=== PATIENT | female | born 1950 | race Caucasian/White ===

== ENCOUNTER 2016-08-15 05:58 | Day surgery (SDC) | payer OTHER ==
[~2016-08-15] VITALS: Ht 163.8 cm; Wt 83.0 kg
[~2016-08-15 05:58] MED LIST: AMLO10TA2 PO; ASPI325T8 PO; LATA2.5D2 EACHEYE; LISI-334 PO; METF500T4 PO; METO100T2 PO; PRAV40TA2 PO; TRAM50TA PO; VALS160T3 PO
[2016-08-15] MEDS ORDERED: PROCHLORPERAZINE 10 MG/2 ML VIAL. IV PRN (07:00)
[2016-08-15] MEDS ORDERED: IV RINGERS,LACTATED 1000ML 1,000 ML IV SCH (07:00)
[2016-08-15] MEDS ORDERED: fentaNYL PF VIAL 100 MCG/2 ML VIAL IV PRN (07:00)
[2016-08-15] MEDS ORDERED: HYDROmorphone 2 MG/ML VIAL IV PRN (07:00)
[2016-08-15] MEDS ORDERED: LIDOCAINE 1% 1 ML SYRINGE. ID PRN (07:00)
[2016-08-15] MEDS ORDERED: ONDANSETRON PF 4 MG/2 ML VIAL. IV PRN (07:00)
[2016-08-15] MEDS ORDERED: LIDOCAINE 1% PF 30 ML VIAL. ONE (07:10)
[2016-08-15] MEDS ORDERED: BUPIVACAINE MPF 0.5% 30 ML VIAL. ONE (07:10)
[2016-08-15] MEDS ORDERED: FAMOTIDINE 20 MG/2 ML VIAL ONE (07:12)
[2016-08-15] MEDS ORDERED: LIDOCAINE 2% PF Vial for OR 5 ML VIAL. ONE (07:12)
[2016-08-15] MEDS ORDERED: PROPOFOL 20 ML IV ONE (07:12)
[2016-08-15] MEDS ORDERED: fentaNYL PF VIAL 100 MCG/2 ML VIAL ONE ×2 (07:13→07:53)
[2016-08-15] MEDS ORDERED: MIDAZOLAM HCL/PF 2 MG/2 ML VIAL. ONE (07:13)
[2016-08-15] MEDS ORDERED: ONDANSETRON PF 4 MG/2 ML VIAL. ONE (07:13)
[2016-08-15] MEDS ORDERED: ROCURONIUM 50 MG/5 ML VIAL. ONE (07:13)
--- NOTE | 2016-08-15 07:44 | DISCH ---
DISCHARGE INSTRUCTIONS Condition on Discharge Condition on Discharge: Stable Activity After Discharge Activity Instructions for Disc: Other, see below Other activity instructions: arm to remain in sling Bathing Instructions: Shower-keep dressing dry Weight Bearing Status after Di: Non weight bearing Diet after Discharge Diet after Discharge: Regular Wound Incision Care Wound/Incision Care: Ice to area for comfort, Keep wound/cast CDI, Change dressing Contacting the DR. after DC Call your doctor for: Concerns you may have Follow-Up Follow up with: Tushar in 2wks CELESTE KUMAR II, MD Aug 15, 2016 07:44
[2016-08-15] MEDS ORDERED: ePHEDrine PF IN SALINE 50 MG/5 ML DISP.SYRIN IV ONE (07:46)
[2016-08-15] MEDS ORDERED: NEOSTIGMINE METHYLSULFATE 5 MG/5 ML SYRINGE. ONE (08:37)
[2016-08-15] MEDS ORDERED: GLYCOPYRROLATE 1 MG/5 ML VIAL. ONE (08:37)
[2016-08-15] MEDS ORDERED: SEVOFLURANE 61 TO 120 MINUTES. IH ONE (08:38)
--- NOTE | 2016-08-15 08:57 | PDOC4 ---
Operative Note Operative Note Date of surgery: 08/15/2016 Surgeon: Grupo Kumar MD Supervisor Grove: Lauren Becerril Procedure: Mini open right rotator cuff repair Preoperative diagnosi partial-thickness rotator cuff tear Postoperative diagnosis: Same Anesthesia: Gen. plus local Blood loss 25 mL's Complications: None Reason for procedure: Kendra is a very pleasant 65-year-old female with persistent shoulder pain and dysfunction. Clinical and radiographic examination including MRI were consistent with the above preoperative diagnosis and because of failure of conservative therapies, her and I had a discussion the risks, benefits, and alternatives to the above surgery and she elected to proceed Description of procedure: Patient was greeted in the preoperative area by myself for the correct extremity was marked and verified. She was taken back to the operative suite and her antibiotics were started and row. Once in the operating room, she was transferred gently supine to the OR table and had successful induction with general anesthesia. We then placed a large pad under her legs and sat her up in a beachchair position. Her C-spine was maintained in a neutral position and she was secured to the bed with all pressure points padded. We then proceeded to prep and drape the right upper extremity in our usual sterile fashion and conducted our were standard preoperative timeout. After this I palpated and marked her surface anatomy and made approximately a 6 cm incision 1 cm off the lateral edge of her acromion. I incised skin with a scalpel and dissected subcutaneous tissue with electrocautery identified a deltoid raphae and used a scalpel to incise this proximally followed by a freer for blunt dissection through the fibers. I placed my Gelpi retractors and then bluntly dissected the bursa off of the undersurface of the deltoid and excised bursal tissue. This allowed me visualization of the rotator cuff. Her rotator cuff was frayed and I could palpate a defect. I used a scalpel to take down and around her to clean up the edge. I then used a Rongeur to create a bony trough. The anteroposterior dimensions of her tear were proximally 1-1/2 cm. I then passed #2 ultra braid in a simple fashion through the rotator cuff tendon, taking care not to incarcerate the biceps tendon. After this I shuttled one of my anterior most sutures through bone tunnel followed by sequentially passing the top one in the bottom of another through bone tunnels area and after this I tied the corresponding sutures over a bony bridge securely. I then inspected my repair and felt they had a comp she good repair and noticed no gapping at the bone tendon interface with gentle rotation. I then irrigated out the operative field and proceeded to close the deltoid with running 0 Vicryl. Inverted interrupted 2-0 Vicryl was used for subcutaneous tissue and running 4-0 Monocryl in a subcuticular fashion was used for skin. I injected approximately 20 mL of a local anesthetic mixture into the andrea-incisional area. The arm and shoulder were cleansed and dried and a sterile dressing was applied. Right upper extremity was then placed into a sling. Prior to comp shooting wound closure all counts report is correct 2. No complications. Patient tolerated surgery well. At the conclusion of the surgery she was laid gently supine and awakened from anesthesia. She was then transferred gently supine to the recovery room cart and taken to PACU stable and extubated condition. Postop plan is for her to be nonweightbearing and remain in the sling for 6 weeks. She' ll be discharged home today. We will see her back in 2 weeks, sooner should a problem arise GRUPO KUMAR II, MD Aug 15, 2016 08:57
[2016-08-15] MEDS: fentaNYL PF VIAL 100 MCG/2 ML VIAL IV PRN ×4 (09:13→10:02)
[2016-08-15] MEDS ORDERED: ONDA4TAB10 SL (09:17)
[2016-08-15] MEDS ORDERED: OXYC-323 PO (09:17)
[2016-08-15] MEDS ORDERED: DOCU-109 PO (09:18)
[2016-08-15] MEDS ORDERED: oxyCODONE/APAP 5/325 1 TAB TABLET PO PRN (09:30)
[2016-08-15] MEDS ORDERED: ALBUTEROL SULFATE 2.5 MG/3 ML NEBU. NEB ONE (10:00)
[2016-08-15 11:44] VITALS: BP 131/59
== END 2016-08-15 12:13 | disposition home or self-care (01) ==
LOC: SURG 05:58
PROVIDERS: ATTEND Orthopaedic Surgery Sports Medicine
DX: S46.011A Strain of muscle(s) and tendon(s) of the rotator cuff of right shoulder, initial encounter (principal); X58.XXXA Exposure to other specified factors, initial encounter; Y93.89 Activity, other specified; Y92.89 Other specified places as the place of occurrence of the external cause; Y99.9 Unspecified external cause status; E78.00 Pure hypercholesterolemia, unspecified; I10 Essential (primary) hypertension; E11.39 Type 2 diabetes mellitus with other diabetic ophthalmic complication; H40.9 Unspecified glaucoma; F17.200 Nicotine dependence, unspecified, uncomplicated; Z90.49 Acquired absence of other specified parts of digestive tract; Z90.710 Acquired absence of both cervix and uterus; Z87.442 Personal history of urinary calculi; Z72.89 Other problems related to lifestyle; Z87.440 Personal history of urinary (tract) infections; Z88.6 Allergy status to analgesic agent; Z88.8 Allergy status to other drugs, medicaments and biological substances
CPT/HCPCS: 23412; 82962; J0690; J2250; J2405; J2704; J2710; J3010; J3490; J7030; S0028; J1170

== ENCOUNTER → 2019-11-29 | Outpatient (CLI) | payer MEDICARE ==
[~2019-11-29] MED LIST changes: +AMLO-187 PO; -AMLO10TA2 PO; +DOCU-109 PO; +METF500T16 PO; -METF500T4 PO; -METO100T2 PO; +METO100T7 PO; +ONDA4TAB10 SL; +OXYC1TAB15 PO; +REGADENOSON 0.4 MG/5 ML DISP.SYRIN. IV ONE
--- NOTE | 2019-11-29 19:30 | RAD ---
MR#: [id number] Date of Study: 11/29/2019 Ordering Physician: JUDY BARDALES Referring Physician: HELADIO MALAGON Tech: RT Valerio (R) (N) APPROVED REPORT Test Type: Pharmacological Stress Nurse/Tech: Jocelyn Pablo R.N. Test Indications: chronic diastolic congestive heart failure Cardiac History: family hx, htn, DM, obese Medications: See Electronic Medical Record Medical History: See Electronic Medical Record Resting ECG: SR w/ slight ST elevation in lead V1 & V2, very slight ST depression in leads in V 4, V5 &V6 Resting Heart Rate: 73 bpm Resting Blood Pressure: 161/59mmHg Pretest Chest Pain: No chest pain Nurse/Tech Notes S1S2, murmur, lungs CTA Consent: The procedure was explained to the patient in lay terms. Informed consent was witnessed. Lj eout was entered into [employer]. History and Stress Test performed by RT Mary Valerio) (N) Pharm. Details Pharmacologic stress testing was performed using 0.4mg per 5ml of regadenoson given intravenously ove r 7-10 seconds. Stress Symptoms SOA POST EXERCISE Reason for Termination: Patient request Max HR: 100 bpm Max Blood Pressure: 186/60mmHg Blood Pressure response to exercise: Normal blood pressure response during stress. Heart Rate response to exercise: wnl Chest Pain: No. Arrhythmia: No. ST Change: No. no changes from abnormal baseline INTERPRETATION Stress EKG Conclusion: No evidence of stress induced EKG changes. Imaging Protocol IMAGE PROTOCOL: Rest Tc-99m/stress Tc-99m 1 day Rest: Stress: Viability: Radiopharm.Tc99m [id number] Sestamibi Dose10.7mCi 31mCi Duration 15min. 10min. Img Date 11/29/2019 11/29/2019 Inj-Img [id number]. 60min. Rest Admin Site:IV - Left AntecubitalAdministrator:RT Dayday ValerioR)(N) Stress Admin Site: IV - Left AntecubitalAdministrator: JESSIE Montero STRESS DATA End Diast. Vol.138.0mlAv. Heart Rate64.0bpm End Syst. Vol.47.0mlCO Index BSA0.0L/min Myocardial Talf321.0gEject. Dgcgekfe17.0% Stress Rates Pk. Fill Rate1.99EDV/secLVtime Pk. Fill 264.99msec Pk. Empty Rate2.54ESV/secLVtime Pk. Biola653.11msec 1/3 Pk. Fill1.55EDV/sec Stress Scores Regional WT1.00Summed WT8.00 Regional WM0.00Summed WM1.00 LV Perfusion Normal perfusion at stress. Wall Motion Normal wall motion with EF > 55% LV Perf. Quant 17 Seg. SSS4.00 17 Seg. SRS13.00 17 Seg. SDS0.00 Stress Defect Extent (% LAD)10.00Rest Defect Extent (% LAD)26.90Rev. Defect Extent (% LAD)0.00 Stress Defect Extent (% LCX) 27.50Rest Defect Extent (% LCX)36.30Rev. Defect Extent (% LCX)3.80 Stress Defect Extent (% RCA)0.00Rest Defect Extent (% RCA)3.30Rev. Defect Extent (% RCA)0.00 Stress Defect Extent (% YOLANDA)13.00Rest Defect Extent (% YOLANDA)27.40Rev. Defect Extent (% YOLANDA)0.70 Other Information Quality:Fair Risk Assessment: Low Risk Conclusion 1. No evidence of stress induced ischemic EKG changes. 2. Normal perfusion at stress. 3. Artifact noted on rest images, not able to be interpreted. 4. Normal EF at > 55% 5. Overall, low risk study Signed by : Hiram Scruggs, Electronically Approved : 11/29/2019 19:30:29
== END ==
LOC: NM 08:11
PROVIDERS: ATTEND Internal Medicine Cardiovascular Disease
DX: I50.32 Chronic diastolic (congestive) heart failure (principal)
CPT/HCPCS: 78452; 93017; A9500; J2785

== ENCOUNTER → 2019-12-13 | Outpatient (CLI) | payer MEDICARE ==
[~2019-12-13] MED LIST changes: +GADOTERATE 7.5 MMOL/15ML VIAL. IVP ONE; -REGADENOSON 0.4 MG/5 ML DISP.SYRIN. IV ONE
--- NOTE | 2019-12-13 13:06 | KCIC ---
EXAMINATION: Magnetic resonance imaging (MRI) of the brain and brainstem with and without contrast with dedicated views of the Temporal Bones and Internal Auditory Canals (IACs) DATE: 12/13/2019 11:00 AM INDICATION: ASYMMETRICAL SENSORINEURAL HEARING LOSS. Acute rt sided hearing loss after a recent ear infection. TECHNIQUE: Multiplanar, multisequence MR images were performed with and without contrast. Multiple T1 + T2 weighted images were obtained through temporal bone and IACs. 3D T2 weighted images were also obtained and reconstructed in coronal and sagittal planes. 15 cc of Clariscan contrast was given intravenously. COMPARISON: None. FINDINGS: Motion artifact degrades image quality. Both 7th and 8th nerve complexes are well visualized and normal. No mass within the internal auditory canal or cerebellopontine angle. The cochlear forms are normal with normal fluid signal within cochlea. The semicircular canals are normal. No abnormal enhancement. No acute infarction. No acute or chronic hemorrhage. The ventricles are normal in size and position without hydrocephalus. Mild scattered FLAIR hyperintensities in the subcortical and periventricular deep white matter, a nonspecific finding, most commonly seen with chronic small vessel ischemic disease. The scalp and calvarium are normal. The pituitary and sella are normal. No Chiari malformation. Mild incompletely characterized degenerative spondylosis of the visualized upper cervical spine. The visualized portions of the orbits, mastoids and paranasal sinuses are normal. Normal flow voids in the distal internal carotid and basilar arteries indicate patency. IMPRESSION: Normal MRI of the internal auditory canals. No mass or abnormal enhancement. Mild scattered FLAIR hyperintensities in the subcortical and periventricular deep white matter, a nonspecific finding, most commonly seen with chronic small vessel ischemic disease. Electronically signed by: Darius Kumar MD (12/13/2019 1:03 PM) [id number]
== END ==
LOC: KCIC MRI 10:17
PROVIDERS: ATTEND Otolaryngology
DX: I67.82 Cerebral ischemia (principal); H90.5 Unspecified sensorineural hearing loss
CPT/HCPCS: 70553; 82565; A9575

== ENCOUNTER → 2019-12-27 | Outpatient (CLI) | payer MEDICARE ==
[~2019-12-27] MED LIST changes: -GADOTERATE 7.5 MMOL/15ML VIAL. IVP ONE
[2019-12-27 10:27] LABS: BASO % 1 % (0-3); EOS # 0.2 x10^3/uL (0.0-0.7); EOS % 3 % (0-3); HEMATOCRIT 37.4 % (36.0-47.0); HEMOGLOBIN 12.5 g/dL (12.0-15.5); LYMPH # 1.1 x10^3/uL (1.0-4.8); LYMPH % 21 % (24-48); MEAN CORPUSCULAR HEMOGLOBIN 29 pg (25-35); MEAN CORPUSCULAR HGB CONC 34 g/dL (31-37); MEAN CORPUSCULAR VOLUME 86 fL (79-100); MONO # 0.5 x10^3/uL (0.0-1.1); MONO % 9 % (0-9); NEUT # 3.5 x10^3/uL (1.8-7.7); NEUT % 66 % (31-73); PLATELET COUNT 150 x10^3/uL (140-400); RED BLOOD COUNT 4.33 x10^6/uL (3.50-5.40); WHITE BLOOD COUNT 5.4 x10^3/uL (4.0-11.0)
== END ==
LOC: ONCLAB 10:08
PROVIDERS: ATTEND Internal Medicine Hematology & Oncology
DX: D50.9 Iron deficiency anemia, unspecified (principal)
CPT/HCPCS: 36415; 82607; 82728; 82746; 83540; 83550; 85025

== ENCOUNTER 2020-01-10 08:21 | Emergency (ER) | payer MEDICARE ==
[~2020-01-10] VITALS: Ht 162.6 cm; Wt 86.4 kg
--- NOTE | 2020-01-10 09:03 | PHYS DOC ---
Past Medical History Past Medical History: Arthritis, Diabetes-Type II, High Cholesterol, Hype rtension Past Surgical History: Other Additional Past Surgical Histo: HERNIA Smoking Status: Former Smoker Alcohol Use: None Drug Use: None General Adult EDM: Chief Complaint: FEVER HPI: HPI: Patient is a 69 year old female who presented to ER for evaluation of cough and trouble breathing for the last 4 days. Patient sister who she lives with was tested positive for COVID-19 yesterday. Patient denies any chest pain, no headache, no sore throat. Patient denies any history of diabetic or hypertension. Patient is not a smoker. Patient is not on oxygen at home. Patient denies any history of COPD or asthma. Review of Systems: Review of Systems: Constitutional: Denies fever or chills. [] Eyes: Denies change in visual acuity. [] HENT: Positive for nasal congestion , NO sore throat. [] Respiratory: Positive for cough or shortness of breath. [] Cardiovascular: Denies chest pain or edema. [] GI: Denies abdominal pain, nausea, vomiting, bloody stools or diarrhea. [] : Denies dysuria. [] Musculoskeletal: Denies back pain or joint pain. [] Integument: Denies rash. [] Neurologic: Denies headache, focal weakness or sensory changes. [] Endocrine: Denies polyuria or polydipsia. [] Lymphatic: Denies swollen glands. [] Psychiatric: Denies depression or anxiety. [] Heart Score: Risk Factors: Risk Factors: DM, Current or recent (<one month) smoker, HTN, HLP, family history of CAD, obesity. Risk Scores: Score 0 - 3: 2.5% MACE over next 6 weeks - Discharge Home Score 4 - 6: 20.3% MACE over next 6 weeks - Admit for Clinical Observation Score 7 - 10: 72.7% MACE over next 6 weeks - Early Invasive Strategies Allergies: Allergies: Allergies Coded Allergies Type Severity Reaction Last Updated Verified metformin Allergy Severe ANAPHYLAXIS 08/15/16 Yes morphine Allergy Intermediate 08/15/16 Yes I S O L A T I O N *CONTACT* Allergy Unknown 08/15/16 Yes Physical Exam: PE: Constitutional: Well developed, well nourished, no acute distress, non-toxic appearance. [] HENT: Normocephalic, atraumatic, bilateral external ears normal, oropharynx moist, no oral exudates, nose normal. [] Eyes: PERRLA, EOMI, conjunctiva normal, no discharge. [] Neck: Normal range of motion, no tenderness, supple, no stridor. [] Cardiovascular:Heart rate regular rhythm, LOUD SYSTOLIC murmur. Lungs & Thorax: Bilateral breath sounds clear to auscultation [] Abdomen: Bowel sounds normal, soft, no tenderness, no masses, no pulsatile masses. [] Skin: Warm, dry, no erythema, no rash. [] Back: No tenderness, no CVA tenderness. [] Extremities: No tenderness, no cyanosis, no clubbing, ROM intact, no edema. [] Neurologic: Alert and oriented X 3, normal motor function, normal sensory function, no focal deficits noted. [] Psychologic: Affect normal, judgement normal, mood normal. [] Current Patient Data: Labs: Laboratory Tests Test 01/10/20 09:00 01/10/20 09:11 Influenza Type A Antigen Negative Influenza Type B Antigen Negative White Blood Count 2.5 x10^3/uL Red Blood Count 3.90 x10^6/uL Hemoglobin 11.3 g/dL Hematocrit 33.9 % Mean Corpuscular Volume 87 fL Mean Corpuscular Hemoglobin 29 pg Mean Corpuscular Hemoglobin Concent 33 g/dL Red Cell Distribution Width 14.9 % Platelet Count 112 x10^3/uL Neutrophils (%) (Auto) 60 % Lymphocytes (%) (Auto) 18 % Monocytes (%) (Auto) 20 % Eosinophils (%) (Auto) 2 % Basophils (%) (Auto) 1 % Neutrophils # (Auto) 1.5 x10^3/uL Lymphocytes # (Auto) 0.4 x10^3/uL Monocytes # (Auto) 0.5 x10^3/uL Eosinophils # (Auto) 0.1 x10^3/uL Basophils # (Auto) 0.0 x10^3/uL Segmented Neutrophils % 50 % Band Neutrophils % 19 % Lymphocytes % 15 % Monocytes % 12 % Eosinophils % 3 % Metamyelocytes % 1 % Platelet Estimate Decreased Anisocytosis Slight Sodium Level 138 mmol/L Potassium Level 3.3 mmol/L Chloride Level 100 mmol/L Carbon Dioxide Level 29 mmol/L Anion Gap 9 Blood Urea Nitrogen 5 mg/dL Creatinine 0.5 mg/dL Estimated GFR (Cockcroft-Gault) 122.0 BUN/Creatinine Ratio 10 Glucose Level 165 mg/dL Calcium Level 8.4 mg/dL Magnesium Level 1.8 mg/dL Total Bilirubin 0.3 mg/dL Aspartate Amino Transf (AST/SGOT) 42 U/L Alanine Aminotransferase (ALT/SGPT) 40 U/L Alkaline Phosphatase 77 U/L Troponin I Quantitative 0.030 ng/mL QS-Zot-G-Type Natriuretic Peptide 543 pg/mL Total Protein 6.0 g/dL Albumin 3.5 g/dL Albumin/Globulin Ratio 1.4 Current Medications Medications (Trade) Dose Ordered Sig/Bharat Route PRN Reason Start Time Stop Time Status Last Admin Dose Admin Potassium Chloride (Klor-Con) 40 meq 1X ONCE PO 01/10/20 11:45 01/10/20 11:46 DC EKG: EKG: EKG was done at 942, heart rate of 59 bpm, sinus rhythm, no ST segment ovation. Radiology/Procedures: Radiology/Procedures: [][facility] [address] [place] [address] IMAGING REPORT Signed PATIENT: DANA BHAKTA ACCOUNT: [id number] : 1950 LOCATION: ER AGE: 69 SEX: F EXAM STATUS: PRE ER ORD. PHYSICIAN: KEISHA NEFF DO REASON: fever, cough, exposured to COVID-19 INFECTION PROCEDURE: CHEST AP ONLY EXAM: Chest, single view. HISTORY: Cough. Fever. Covid 19 exposure COMPARISON: None. FINDINGS: A frontal view of the chest is obtained. There is no infiltrate, pleural effusion or pneumothorax. There is a prominent cardiac silhouette, a component of which is accentuated due to portable technique. IMPRESSION: No acute pulmonary finding. Electronically signed by: Latia Al MD (01/10/2020 10:14 AM) [facility] DICTATED and SIGNED BY: LATIA AL MD DATE: 01/10/20 [id number] Course & Med Decision Making: Course & Med Decision Making Pertinent Labs and Imaging studies reviewed. (See chart for details) Patient is a 69-year-old female who was evaluated in ER due to cough and congestion. Patient sister whom she lives with with tested positive for COVID- 19 yesterday. Patient is most likely to have COVID-19. Test pending at this time. Vital sign is stable at this time. Her oxygen saturation is 98% on room air, her chest x-ray did not show any acute infiltration. Patient will be discharged home, she was given instruction about isolation at home. Patient is amenable to plan of care. Dragon Disclaimer: Dragon Disclaimer: This electronic medical record was generated, in whole or in part, using a voice recognition dictation system. Departure Departure Impression: Primary Impression: Person under investigation for COVID-19 Additional Impressions: Bronchitis Hypokalemia Disposition: 01 DC HOME SELF CARE/HOMELESS Condition: STABLE Referrals: TONY PITT MD (PCP) please follow up with your doctor as needed Patient Instructions: Acute Bronchitis Additional Instructions: You have been tested for or diagnosed with COVID-19. It is an infection caused by a new type of coronavirus. COVID-19 will cause cold-like or mild flu symptoms in most. It can cause more severe symptoms like problems breathing in some. There is no treatment for COVID-19. The body will clear the infection over time. Self-care will help to ease discomfort. Steps to Take: Self-Care Rest as needed. Healthy habits may help you feel better. Steps include: Choose healthy foods including fruits and vegetables. Drink water throughout the day. Get plenty of sleep each night. If you smoke, try to quit. It may ease breathing. Avoid alcohol. Keep Others Healthy The virus can spread to others. Droplets are released every time you sneeze or cough. The droplets can get into the mouth, nose, or eyes of people near you and lead to infection. To lower the chances of spreading COVID-19 to others: Stay at home until your doctor has said it is safe to leave. If you tested positive this will mean staying isolated until both of the following are true: At least 7 days have passed since the start of illness. You are free of fever for at least 72 hours without the use of medicine. During this time: - Avoid public areas, events, or transportation. Do not return to work or school until your doctor has said it is safe to do so. - Call ahead if you need to go to a medical center. Let them know you may have COVID-19. It will help them guide you where to go. They may also ask you to wear a facemask when you come to the office. - If you call for emergency medical services, let them know you may have COVID- 19. While at home: - Try to avoid close contact with others. Stay about 6 feet away. - If possible, spend most of your time in a separate room from others. - Use a face mask if you will be in close contact with others such as sharing a room or vehicle. - Have someone wipe down common surfaces in the home. Use household founder and chief technical officer every day on areas like doorknobs, counters, or sinks. - Cough or sneeze into a tissue. Throw the tissue away right after use. If a tissue is not available, cough or sneeze into your elbow. - Wash your hands often. Wash them after sneezing or coughing. Use soap and water and wash for at least 20 seconds. Alcohol based hand septic cleaner can be used if soap and water is not available. - Do not prepare food for others. Avoid sharing personal items like forks, spoons, or toothbrushes. - Avoid close contact with pets while you are sick. There is no evidence of the virus passing to pets. This is a safety step until more is known about this virus. Isolation can be frustrating. Social interaction can help. Keep in touch with friends and family through phone and tech options. You can still interact with others in your home, just keep a safe distance of about 6 feet. Follow-up: Your doctors office will check in with you to see if there are any changes in your health. You may be asked to keep track of symptoms to share with them. They will also let you know when you are clear to be in public again. Problems to Look Out For: Contact your doctor if your recovery is not going as you expect. Get emergency care if you have problems such as: - Trouble breathing - Nonstop chest pain or pressure - Changes in awareness, confusion, or problems waking - Lips or face have bluish color - Worsening of symptoms If you think you have an emergency, call for emergency medical services right away. As taken from [facility] KEISHA NEFF DO Jan 10, 2020 09:03
[2020-01-10 09:27] LABS: BASO % 1 % (0-3); EOS # 0.1 x10^3/uL (0.0-0.7); EOS % 2 % (0-3); HEMATOCRIT 33.9 % (36.0-47.0); HEMOGLOBIN 11.3 g/dL (12.0-15.5); LYMPH # 0.4 x10^3/uL (1.0-4.8); LYMPH % 18 % (24-48); MEAN CORPUSCULAR HEMOGLOBIN 29 pg (25-35); MEAN CORPUSCULAR HGB CONC 33 g/dL (31-37); MEAN CORPUSCULAR VOLUME 87 fL (79-100); MONO # 0.5 x10^3/uL (0.0-1.1); MONO % 20 % (0-9); NEUT # 1.5 x10^3/uL (1.8-7.7); NEUT % 60 % (31-73); PLATELET COUNT 112 x10^3/uL (140-400); RED CELL DISTRIBUTION WIDTH 14.9 % (11.5-14.5); WHITE BLOOD COUNT 2.5 x10^3/uL (4.0-11.0)
[2020-01-10 09:38] LABS: CALCIUM 8.4 mg/dL (8.5-10.1); CREATININE 0.5 mg/dL (0.6-1.0); POTASSIUM 3.3 mmol/L (3.5-5.1)
[2020-01-10 09:44] LABS: ALBUMIN 3.5 g/dL (3.4-5.0); ALBUMIN/GLOBULIN RATIO 1.4 (1.0-1.7); MAGNESIUM 1.8 mg/dL (1.8-2.4); TOTAL BILIRUBIN 0.3 mg/dL (0.2-1.0)
[2020-01-10 09:54] LABS: INFLUENZA A PATIENT NEGATIVE (NEGATIVE); INFLUENZA B PATIENT NEGATIVE (NEGATIVE)
[2020-01-10 10:08] LABS: % BANDS 19 % (0-9); % EOS 3 % (0-5); % LYMPHS 15 % (24-48); % METAS 1 % (0-0); % MONOS 12 % (0-10); % SEGS 50 % (35-66); ANISOCYTOSIS SLIGHT; PLT ESTIMATE DECREASED (ADEQUATE)
--- NOTE | 2020-01-10 10:18 | RAD ---
EXAM: Chest, single view. HISTORY: Cough. Fever. Covid 19 exposure COMPARISON: None. FINDINGS: A frontal view of the chest is obtained. There is no infiltrate, pleural effusion or pneumothorax. There is a prominent cardiac silhouette, a component of which is accentuated due to portable technique. IMPRESSION: No acute pulmonary finding. Electronically signed by: Latia Nieves MD (01/10/2020 10:14 AM) [facility]
[2020-01-10] MEDS ORDERED: POTASSIUM CHLORIDE 10 MEQ TABLET.ER. PO ONE (11:45)
[2020-01-10 12:30] VITALS: BP 171/74
--- NOTE | 2020-01-10 16:45 | EKG ---
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
--- NOTE | 2020-01-12 13:20 | NUR ---
IP: Informed pt of positive COVID test and the need to quarantine for 14 days. Pt verbalized understanding.
== END 2020-01-10 13:04 | disposition home or self-care (01) ==
LOC: ER 08:21
DX: U07.1 COVID-19 (principal); J40 Bronchitis, not specified as acute or chronic; E87.6 Hypokalemia; E11.9 Type 2 diabetes mellitus without complications; E78.00 Pure hypercholesterolemia, unspecified; I10 Essential (primary) hypertension; Z87.891 Personal history of nicotine dependence; Z88.1 Allergy status to other antibiotic agents; Z88.5 Allergy status to narcotic agent; Z91.041 Radiographic dye allergy status
CPT/HCPCS: 36415; 71045; 80053; 83735; 83880; 84484; 85007; 85025; 87040; 87804; 93005; 99285; C9803; U0003

== ENCOUNTER 2020-04-21 16:20 | Observation (INO) | payer MEDICARE ==
[~2020-04-21] VITALS: Ht 162.6 cm; Wt 90.3 kg
[~2020-04-21 16:20] MED LIST changes: -LISI-334 PO; +LISI20TA18 PO
[2020-04-21] MEDS ORDERED: fentaNYL PF VIAL 100 MCG/2 ML VIAL IVP ONE ×4 (19:00→22:30)
--- NOTE | 2020-04-21 20:12 | RAD ---
EXAM: CT HEAD WITHOUT IV CONTRAST CLINICAL HISTORY: Reason: fall, HIT HEAD / Spl. Instructions: PT DENIES HEAD OR NECK PAIN / History: COMPARISON: None. TECHNIQUE: Routine CT of the head without contrast. Soft tissues and bone windows were reviewed. PQRS compliance statement - One or more of the following individualized dose reduction techniques wer e utilized for this study: 1. Automated exposure control 2. Adjustment of the mA and/or kV according to patient size 3. Use of iterative reconstruction technique FINDINGS: There is no evidence of hemorrhage, mass or extra-axial fluid collection. Travis-white differentiation is maintained with no evidence of edema. Subcortical, periventricular as w ell as deep white matter hypoattenuation likely changes of chronic small vessel disease. There is no mass effect or shift of the intracranial structures. The ventricles, basilar cisterns and cortical sulci are normal in size and configuration for the lauren ents stated age. The cerebellum and brainstem are unremarkable. The calvarium demonstrates no evidence of fracture or focal lesion. There is normal aeration of the visualized paranasal sinuses and mastoid air cells. The visualized portions of the orbits are normal. Atherosclerotic calcifications of the intracranial internal carotid and vertebral arteries is seen. IMPRESSION: No evidence for acute intracranial process. White matter changes likely chronic small vessel disease. EXAM: CT CERVICAL SPINE WITHOUT IV CONTRAST CLINICAL HISTORY: Reason: fall, HIT HEAD / Spl. Instructions: PT DENIES HEAD OR NECK PAIN / History: COMPARISON: None available. TECHNIQUE: Helical CT of the cervical spine was performed. Axial, coronal and sagittal reformatted im ages were also performed. PQRS compliance statement - One or more of the following individualized dose reduction techniques wer e utilized for this study: 1. Automated exposure control 2. Adjustment of the mA and/or kV according to patient size 3. Use of iterative reconstruction technique FINDINGS: Vertebral body heights are preserved. Mild C5-6 and moderate C6-7 disc height loss. Endplate osteophy pat are seen. No spondylolisthesis. No acute fracture. Vascular calcifications are seen. IMPRESSION: Negative acute fracture or subluxation. Multilevel degenerative changes of the cervical spine as above. Electronically signed by: Kevin Bryant MD (04/21/2020 8:10 PM) [facility]
--- NOTE | 2020-04-21 20:48 | PHYS DOC ---
Past Medical History Past Medical History: Arthritis, Diabetes-Type II, High Cholesterol, Hype rtension, Other Additional Past Medical Histor: HEART MURMUR, BLOOD TRANS REACTION Past Surgical History: Cholecystectomy, Hip Replacement, Hysterectomy, Tonsillectomy, Other Additional Past Surgical Histo: HERNIA,SHOULDER Smoking Status: Former Smoker Alcohol Use: Rarely Drug Use: None General Adult EDM: Chief Complaint: MECHANICAL FALL HPI: HPI: Patient is a 69 year old female with history of anemia, diabetes, hypertension presents emergency department for a fall. Patient reports she tripped while walking and fell onto concrete. She did hit her face. No loss of consciousness. Patient is not on any anticoagulation. Patient is complaining of right arm pain and left elbow pain. Patient is accompanied by family member. Pain is located in the right elbow and forearm. She also has some pain in the left shoulder and left elbow. Patient denies chest pain abdominal pain back pain pain in the lower extremities. Patient was able to get up and walk into her home. She was then drove to the emergency department by family member. Review of Systems: Review of Systems: Review of Systems: Constitutional: Denies fever or chills Eyes: Denies redness or eye pain HENT: Denies nasal congestion or sore throat Respiratory: Denies cough or shortness of breath Cardiovascular: Denies chest pain or palpitations GI: denies abdominal pain and nausea, denies vomiting or diarrhea : Denies dysuria or hematuria Musculoskeletal: Denies back pain or joint pain Integument: Denies rash or skin lesions Neurologic: Denies headache, focal weakness or sensory changes Heart Score: C/O Chest Pain: No Current Medications: Current Medications Medications (Trade) Dose Ordered Sig/Bharat Start Time Stop Time Status Last Admin Dose Admin Fentanyl Citrate (Fentanyl 2ml Vial) 25 mcg 1X ONCE 04/21/20 19:00 04/21/20 19:01 DC 04/21/20 19:09 25 MCG Allergies: Allergies: Allergies Coded Allergies Type Severity Reaction Last Updated Verified metformin Allergy Severe ANAPHYLAXIS 08/15/16 Yes morphine Allergy Intermediate 08/15/16 Yes I S O L A T I O N *CONTACT* Allergy Unknown 08/15/16 Yes Physical Exam: PE: AIRWAY: Patient responds to verbal commands. Airway patent. BREATHING: spontaneously, equal and clear breath sounds bilaterally. No distress or stridor. CIRCULATION: Skin warm and dry. 2+ pulses bilaterally = DP, PTl. Capillary refill less than 2 sec. upper and lower extremities warm bilaterally. color television console monitor demonstrates sinus rhythm. GCS 15 HEENT: Normocephalic. No facial bone tenderness. Abrasion on the right lower mandible EYES: PERRL. No subconjuctiva hemorrhage, no periorbital ecchyomosis. EARS: No external trauma NARES: Patent bilaterally, no epistaxis MOUTH: clear of foreign bodies, lips and mucosa normal color without lesions. No signs of basal skull fracture. NEURO: Alert and oriented to person, place, and time. Moving all extremities. Follows commands. No gross deficits. Neurosensory intact in all extremities. NECK: cervical spine nontender, no stepoffs, crepitus or deformities to palpation. Trachea midline. CHEST: Symmetrical, no tracheal shift. No crepitus, flail chest, or deformities. No subcutaneous air palpated. No Crepitus. No ecchymosis, abrasions or lacerations. ABDOMEN: Soft, nontender, nondistended. No palpable organomegaly or masses. PELVIS: Nontender, Stable BACK: TLS Spine: No step-offs, deformities, abrasions/lacerations. No midline TTP. No ecchymosis. EXTREMITIES: Left upper extremity: Tenderness palpation of the left shoulder and left elbow. No tenderness palpation over the forearm wrist or hand on the left side. Range of motion of the elbow is limited secondary to pain. Patient's sensation and pulses are intact. Compartments are all soft. Right upper extremity: There is tenderness to palpation throughout the hand forearm elbow. Pulses and sensation are normal. Range of motion is limited secondary to pain. Compartments are all soft. bilateral lower extremities. No tenderness. Pulses sensation muscle strength range of motion normal. SKIN: Above Current Patient Data: Vital Signs: Vital Signs Date Time Temp Pulse Resp B/P (MAP) Pulse Ox O2 Delivery O2 Flow Rate FiO2 04/21/20 19:50 61 18 156/67 (96) 94 Room Air 04/21/20 17:50 98.1 98.1 EKG: EKG: [] Radiology/Procedures: Radiology/Procedures: []PROCEDURE: CT HEAD AND CERVICAL SPINE WO EXAM: CT HEAD WITHOUT IV CONTRAST CLINICAL HISTORY: Reason: fall, HIT HEAD / Spl. Instructions: PT DENIES HEAD OR NECK PAIN / History: COMPARISON: None. TECHNIQUE: Routine CT of the head without contrast. Soft tissues and bone windows were reviewed. PQRS compliance statement - One or more of the following individualized dose re duction techniques were utilized for this study: 1. Automated exposure control 2. Adjustment of the mA and/or kV according to patient size 3. Use of iterative reconstruction technique FINDINGS: There is no evidence of hemorrhage, mass or extra-axial fluid collection. Travis-white differentiation is maintained with no evidence of edema. Subcortical, periventricular as well as deep white matter hypoattenuation likely changes of chronic small vessel disease. There is no mass effect or shift of the intracranial structures. The ventricles, basilar cisterns and cortical sulci are normal in size and configuration for the patients stated age. The cerebellum and brainstem are unremarkable. The calvarium demonstrates no evidence of fracture or focal lesion. There is normal aeration of the visualized paranasal sinuses and mastoid air cells. The visualized portions of the orbits are normal. Atherosclerotic calcifications of the intracranial internal carotid and vertebral arteries is seen. IMPRESSION: No evidence for acute intracranial process. White matter changes likely chronic small vessel disease. EXAM: CT CERVICAL SPINE WITHOUT IV CONTRAST CLINICAL HISTORY: Reason: fall, HIT HEAD / Spl. Instructions: PT DENIES HEAD OR NECK PAIN / History: COMPARISON: None available. TECHNIQUE: Helical CT of the cervical spine was performed. Axial, coronal and sagittal reformatted images were also performed. PQRS compliance statement - One or more of the following individualized dose reduction techniques were utilized for this study: 1. Automated exposure control 2. Adjustment of the mA and/or kV according to patient size 3. Use of iterative reconstruction technique FINDINGS: Vertebral body heights are preserved. Mild C5-6 and moderate C6-7 disc height loss. Endplate osteophytes are seen. No spondylolisthesis. No acute fracture. Vascular calcifications are seen. IMPRESSION: Negative acute fracture or subluxation. Multilevel degenerative changes of the cervical spine as above. Electronically signed by: Kevin Zapata MD (04/21/2020 8:10 PM) [facility] DICTATED and SIGNED BY: KEVIN ZAPATA MD DATE: 04/21/20 [id number] PATIENT: DANA BHAKTA ACCOUNT: [id number] : 1950 LOCATION: ER AGE: 69 SEX: F EXAM STATUS: REG ER ORD. PHYSICIAN: EMILIA WEEKS DO REASON: fall PROCEDURE: SHOULDER 2+V LEFT Exam: Right hand 3 views. Right forearm 2 views. Bilateral elbows 3 views. Left shoulder 3 views INDICATION: Fall TECHNIQUE: Frontal, lateral and oblique views of the right hand, and bilateral elbows. Frontal and lateral views of the right forearm. Frontal view of the left shoulder with internal and external rotation and transscapular Y views. Comparisons: None FINDINGS: Hand: There is a mildly impacted intra-articular fracture of the distal radius. Additionally there is a mild chip fracture at the ulnar styloid. There is mild surrounding soft tissue swelling. There is minimal step-off at the articular surface seen best on lateral view of the hand. Other fractures are identified. Bone mineralization is normal. Forearm: Redemonstration of distal radial fracture and ulnar styloid fracture. Other fractures seen. Bone mineralization is normal. Joint spaces are otherwise well- maintained. Right elbow: Bone mineralization is normal. No acute or healed fractures. Soft tissues are unremarkable. Joint spaces are well-maintained. Left elbow: Bone mineralization is normal. No acute or healed fractures. Soft tissues are unremarkable. Joint spaces are well-maintained. Left shoulder: Mild osteopenia. Joint spaces are well-maintained. No acute or healed fractures. Soft tissues are unremarkable. IMPRESSION: 1. Mildly impacted intra-articular fracture of the distal right radius with minimal cortical step-off at the articular surface. 2. Minimally displaced ulnar styloid chip fracture. 3. No acute osseous abnormality of the right elbow. 4. No acute osseous abnormality of the left elbow 5. No acute osseous abnormality of the left shoulder Electronically signed by: Guilherme Velez MD (04/21/2020 9:30 PM) [facility] DICTATED and SIGNED BY: GUILHERME VELEZ MD DATE: 04/21/[id number] 0 PATIENT: DANA BHAKTA ACCOUNT: [id number] : 1950 LOCATION: ER AGE: 69 SEX: F EXAM STATUS: REG ER ORD. PHYSICIAN: EMILIA WEEKS DO REASON: elbow pain PROCEDURE: CT UPPR EXTREMTY WO CONTRST LT EXAM: CT left elbow without contrast DATE: 04/21/2020 10:34 PM COMPARISON: Radiographs pars fracture INDICATION: Reason: elbow pain / Spl. Instructions: / History: TECHNIQUE: CT of the left elbow was performed without IV contrast. Axial, coronal and sagittal reformatted images were generated. PQRS compliance statement - One or more of the following individualized dose re duction techniques were utilized for this study: 1. Automated exposure control 2. Adjustment of the mA and/or kV according to patient size 3. Use of iterative reconstruction technique FINDINGS: Mild articular surface depression of the radial head suspicious for nondisplaced radial head fracture. Moderate left elbow joint effusion. Mild dorsal soft tissue swelling. IMPRESSION: Suspected slightly depressed left radial head fracture with moderate left elbow joint effusion. Electronically signed by: Kevin Zapata MD (04/21/2020 11:02 PM) [facility] DICTATED and SIGNED BY: KEVIN ZAPATA MD DATE: 04/21/20 [id number] 0 Course & Med Decision Making: Course & Med Decision Making Medical decision making: This is a 69-year-old female presents after mechanical fall. Patient is mostly complaining of right arm pain as well as left elbow pain. Patient is neurovascular intact in the bilateral upper and lower extremities. She did hit her face. She reports no syncope. Patient is not on anticoagulants. Here in the emergency department patient's vital signs are stable. She is given dose of pain medication. CT of the head and cervical spine were negative for any acute findings. X-ray of the right radius arm shows mildly impacted intra-articular fracture of the distal radius minimal cortical step-off at articular surface. Minimally displaced ulnar styloid chip fracture. No acute osseous normality of the right elbow left elbow or left shoulder. I did speak with the on-call orthopedic physician Dr. Ta. Patient symptoms mechanism of injury and x-ray findings. Will place patient in sugar tong splint. Okay to follow-up in the office on April 23. Sugar tong splint was placed. Patient is neurovascularly intact post splint application. On reevaluation patient reports she still having a lot of pain in her left el bow. Is having difficulty with full flexion and extension. Will obtain CT to rule out fracture. CT showed possible radial head fracture on the left. Patient placed in posterior long-arm splint. Patient neurovascularly intact post splinting. I did speak with the on-call orthopedic physician again. He is aware of the new finding and that the patient will be admitted to the hospital. At this time based on patient's symptoms and findings will admit to the hospital for further observation and evaluation. Spoke with patient. Agreeable to admission. They are aware of all labs and imaging. All questions answered and patient stable at time of admission. Dragon Disclaimer: Dragon Disclaimer: This electronic medical record was generated, in whole or in part, using a voice recognition dictation system. Departure Departure Impression: Primary Impression: Fall Additional Impressions: Fracture of right distal radius Fracture of right ulnar styloid Left radial head fracture Disposition: 09 ADMITTED INPT THIS HOSP (Admitted to Dr. Roman at 2330 on 04/21/20. Patient stable at the time of admission. Spoke with Dr. Roman at 0530 on 04/22/2020. Agrees to plan. We will see the patient.) Condition: STABLE Referrals: [facility]PER[facility] (PCP) Splinting Patient informed of findings. Right sugar tong splint and left posterior long- arm applied by myself and client technologies specialist. The splint is checked by myself, with adequate positioning for stabilization of the injury. Distal capillary refill normal and distal neurologic function neurologically intact. No signs of compartment syndrome. EMILIA WEEKS DO Apr 21, 2020 20:48
--- NOTE | 2020-04-21 21:32 | RAD ---
Exam: Right hand 3 views. Right forearm 2 views. Bilateral elbows 3 views. Left shoulder 3 views INDICATION: Fall TECHNIQUE: Frontal, lateral and oblique views of the right hand, and bilateral elbows. Frontal and la teral views of the right forearm. Frontal view of the left shoulder with internal and external rotati on and transscapular Y views. Comparisons: None FINDINGS: Hand: There is a mildly impacted intra-articular fracture of the distal radius. Additionally there is a mil d chip fracture at the ulnar styloid. There is mild surrounding soft tissue swelling. There is minima l step-off at the articular surface seen best on lateral view of the hand. Other fractures are identi fied. Bone mineralization is normal. Forearm: Redemonstration of distal radial fracture and ulnar styloid fracture. Other fractures seen. Bone mine ralization is normal. Joint spaces are otherwise well-maintained. Right elbow: Bone mineralization is normal. No acute or healed fractures. Soft tissues are unremarkable. Joint spa dax are well-maintained. Left elbow: Bone mineralization is normal. No acute or healed fractures. Soft tissues are unremarkable. Joint spa dax are well-maintained. Left shoulder: Mild osteopenia. Joint spaces are well-maintained. No acute or healed fractures. Soft tissues are unr emarkable. IMPRESSION: 1. Mildly impacted intra-articular fracture of the distal right radius with minimal cortical step-of f at the articular surface. 2. Minimally displaced ulnar styloid chip fracture. 3. No acute osseous abnormality of the right elbow. 4. No acute osseous abnormality of the left elbow 5. No acute osseous abnormality of the left shoulder Electronically signed by: Guilherme Gardner MD (04/21/2020 9:30 PM) [facility]
--- NOTE | 2020-04-21 23:04 | RAD ---
EXAM: CT left elbow without contrast DATE: 04/21/2020 10:34 PM COMPARISON: Radiographs pars fracture INDICATION: Reason: elbow pain / Spl. Instructions: / History: TECHNIQUE: CT of the left elbow was performed without IV contrast. Axial, coronal and sagittal reform atted images were generated. PQRS compliance statement - One or more of the following individualized dose reduction techniques wer e utilized for this study: 1. Automated exposure control 2. Adjustment of the mA and/or kV according to patient size 3. Use of iterative reconstruction technique FINDINGS: Mild articular surface depression of the radial head suspicious for nondisplaced radial head fracture . Moderate left elbow joint effusion. Mild dorsal soft tissue swelling. IMPRESSION: Suspected slightly depressed left radial head fracture with moderate left elbow joint effusion. Electronically signed by: Kevin Bryant MD (04/21/2020 11:02 PM) [facility]
[2020-04-21] MEDS ORDERED: ONDANSETRON PF 4 MG/2 ML VIAL. IV PRN (23:30)
[2020-04-21] MEDS ORDERED: fentaNYL PF VIAL 100 MCG/2 ML VIAL IV PRN (23:30)
[2020-04-22] VITALS (7 sets, daily range): BP systolic 152–188; BP diastolic 61–81
[2020-04-22] MEDS: fentaNYL PF VIAL 100 MCG/2 ML VIAL IV PRN ×5 (01:19→09:42)
--- NOTE | 2020-04-22 06:55 | PDOC1 ---
History and Physical Date of Admission Date of Admission DATE: 04/22/20 TIME: 06:43 Identification/Chief Complaint Chief Complaint Mechanical fall Source Source: Chart review, Patient History of Present Illness History of Present Illness Patient is 69-year-old female with past medical history hypertension, DM2, who presents to the ED for evaluation after mechanical fall. She reports falling forward after stumbling over a curve yesterday afternoon. She denies head injury or loss of consciousness. Since that time she complains of right forearm and wrist pain, and left elbow pain, 10/10. Pain aggravated by movement. She is not on any blood thinners. Upon evaluation in ED she was noted to have right radius, right ulna, and suspected left radial head fracture. Orthopedic surgery was consulted in the ED. Will admit patient for further medical management. Past Medical History Cardiovascular: HTN, Hyperlipidemia Heme/Onc: Anemia NOS Endocrine: Diabetes Past Surgical History Past Surgical History Cholecystectomy, right hip replacement, hernia repair, hysterectomy, tonsillectomy, shoulder surgery Family History Family History: Heart Disease Social History Smoke: Quit ALCOHOL: rare Drugs: None Current Problem List Problem List Problems Medical Problems: (1) Fall Status: Acute (2) Fracture of right distal radius Status: Acute (3) Fracture of right ulnar styloid Status: Acute (4) Left radial head fracture Status: Acute Current Medications Current Medications Current Medications Fentanyl Citrate (Fentanyl 2ml Vial) 25 mcg 1X ONCE IVP Last administered on 04/21/20at 19:09; Start 04/21/20 at 19:00; Stop 04/21/20 at 19:01; Status DC Fentanyl Citrate (Fentanyl 2ml Vial) 25 mcg 1X ONCE IVP Last administered on 04/21/20at 20:50; Start 04/21/20 at 20:45; Stop 04/21/20 at 20:49; Status DC Fentanyl Citrate (Fentanyl 2ml Vial) 25 mcg 1X ONCE IVP Last administered on 04/21/20at 22:17; Start 04/21/20 at 22:00; Stop 04/21/20 at 22:01; Status DC Fentanyl Citrate (Fentanyl 2ml Vial) 25 mcg 1X ONCE IVP Last administered on 04/22/20at 00:14; Start 04/21/20 at 22:30; Stop 04/21/20 at 22:31; Status DC Ondansetron HCl (Zofran) 4 mg PRN Q8HRS PRN IV NAUSEA/VOMITING 1ST CHOICE; Start 04/21/20 at 23:30; Stop 04/22/20 at 23:29 Fentanyl Citrate (Fentanyl 2ml Vial) 25 mcg PRN Q4HRS PRN IV SEVERE PAIN 7-10; Start 04/21/20 at 23:30; Stop 04/22/20 at 01:10; Status DC Fentanyl Citrate (Fentanyl 2ml Vial) 75 mcg PRN Q2HR PRN IV SEVERE PAIN 7-10 Last administered on 04/22/20at 06:39; Start 04/22/20 at 01:15 Active Scripts Active Reported Colace (Docusate Sodium) 100 Mg Capsule 1 Cap PO BID Zofran Odt (Ondansetron) 4 Mg Tab.rapdis 1 Tab SL Q8HRS Percocet 5-325 Mg Tablet (Oxycodone/Acetaminophen) 1 Each Tablet 1 Tab PO Q3HRS Lisinopril 20 Mg Tablet 1 Tab PO QHS Xalatan (Latanoprost) 2.5 Ml Drops 1 Drop EACHEYE QHS Tramadol Hcl 50 Mg Tablet 50 Mg PO DAILY PRN Metoprolol Tartrate 100 Mg Tablet 100 Mg PO BID Amlodipine Besylate 10 Mg Tablet 10 Mg PO DAILY Pravastatin Sodium 40 Mg Tablet 1 Tab PO QHS Allergies Allergies: Coded Allergies: metformin (Verified Allergy, Severe, ANAPHYLAXIS, 08/15/16) morphine (Verified Allergy, Intermediate, 08/15/16) I S O L A T I O N *CONTACT* (Verified Allergy, Unknown, 08/15/16) ESBL + ROS Review of System GENERAL: No history of weight change, weakness or fevers. SKIN: No bruising, hair changes or rashes. EYES: No blurred, double or loss of vision. NOSE AND THROAT: No history of nosebleeds, hoarseness or sore throat. HEART: Denies chest pain, denies palpitations. LUNGS: Denies cough, hemoptysis, wheezing or shortness of breath. GASTROINTESTINAL: Denies nausea, vomiting, abdominal pain. GENITOURINARY: Denies dysuria, frequency, urgency, hematuria. NEUROLOGIC: Denies history of numbness, tingling, tremor or weakness. PSYCHIATRIC: Denies anxiety, denies depression. ENDOCRINE: No history of heat or cold intolerance, polyuria or polydipsia. EXTREMITIES: Right upper extremity and left elbow pain. Physical Exam Physical Exam General: Alert, Oriented X3, Cooperative, Mild distress. HEENT: PERRLA, EOMI Lungs: Clear to auscultation, Normal air movement Heart: RRR, no murmurs Cardiovascular: S1, S2 Abdomen: Normal bowel sounds, Soft, No tenderness Extremities: Tenderness to palpation of the left shoulder and left elbow. T enderness to palpation throughout the right hand forearm elbow. Neurovascularly intact. No clubbing, No cyanosis Skin: No rashes, No significant lesion Neuro: Normal speech, Normal tone, Sensation intact Psych/Mental Status: Mental status NL, Mood NL Vitals Vitals Vital Signs Date Time Temp Pulse Resp B/P (MAP) Pulse Ox O2 Delivery O2 Flow Rate FiO2 04/22/20 06:39 28 Room Air 04/22/20 03:24 98.2 65 159/61 (93) 90 98.2 Labs Labs Laboratory Tests Test 04/22/20 00:54 Glucose (Fingerstick) 151 mg/dL (70-99) Laboratory Tests Test 04/22/20 00:54 Glucose (Fingerstick) 151 mg/dL (70-99) Images Images CT HEAD AND CERVICAL SPINE WO EXAM: CT HEAD WITHOUT IV CONTRAST CLINICAL HISTORY: Reason: fall, HIT HEAD / Spl. Instructions: PT DENIES HEAD OR NECK PAIN / History: COMPARISON: None. TECHNIQUE: Routine CT of the head without contrast. Soft tissues and bone windows were reviewed. PQRS compliance statement - One or more of the following individualized dose reduction techniques were utilized for this study: 1. Automated exposure control 2. Adjustment of the mA and/or kV according to patient size 3. Use of iterative reconstruction technique FINDINGS: There is no evidence of hemorrhage, mass or extra-axial fluid collection. Travis-white differentiation is maintained with no evidence of edema. Subcortical, periventricular as well as deep white matter hypoattenuation likely changes of chronic small vessel disease. There is no mass effect or shift of the intracranial structures. The ventricles, basilar cisterns and cortical sulci are normal in size and configuration for the patients stated age. The cerebellum and brainstem are unremarkable. The calvarium demonstrates no evidence of fracture or focal lesion. There is normal aeration of the visualized paranasal sinuses and mastoid air cells. The visualized portions of the orbits are normal. Atherosclerotic calcifications of the intracranial internal carotid and vertebral arteries is seen. IMPRESSION: No evidence for acute intracranial process. White matter changes likely chronic small vessel disease. EXAM: CT CERVICAL SPINE WITHOUT IV CONTRAST CLINICAL HISTORY: Reason: fall, HIT HEAD / Spl. Instructions: PT DENIES HEAD OR NECK PAIN / History: COMPARISON: None available. TECHNIQUE: Helical CT of the cervical spine was performed. Axial, coronal and sagittal reformatted images were also performed. PQRS compliance statement - One or more of the following individualized dose reduction techniques were utilized for this study: 1. Automated exposure control 2. Adjustment of the mA and/or kV according to patient size 3. Use of iterative reconstruction technique FINDINGS: Vertebral body heights are preserved. Mild C5-6 and moderate C6-7 disc height loss. Endplate osteophytes are seen. No spondylolisthesis. No acute fracture. Vascular calcifications are seen. IMPRESSION: Negative acute fracture or subluxation. Multilevel degenerative changes of the cervical spine as above. Electronically signed by: Kevin Zapata MD (04/21/2020 8:10 PM) [facility] [place] DICTATED and SIGNED BY: KEVIN ZAPATA MD DATE: 04/21/[id number] 0 PATIENT: DANA BHAKTA ACCOUNT: [id number] : 1950 LOCATION: ER AGE: 69 SEX: F EXAM STATUS: REG ER ORD. PHYSICIAN: EMILIA WEEKS DO REASON: fall PROCEDURE: SHOULDER 2+V LEFT Exam: Right hand 3 views. Right forearm 2 views. Bilateral elbows 3 views. Left shoulder 3 views INDICATION: Fall TECHNIQUE: Frontal, lateral and oblique views of the right hand, and bilateral elbows. Frontal and lateral views of the right forearm. Frontal view of the left shoulder with internal and external rotation and transscapular Y views. Comparisons: None FINDINGS: Hand: There is a mildly impacted intra-articular fracture of the distal radius. Additionally there is a mild chip fracture at the ulnar styloid. There is mild surrounding soft tissue swelling. There is minimal step-off at the articular surface seen best on lateral view of the hand. Other fractures are identified. Bone mineralization is normal. Forearm: Redemonstration of distal radial fracture and ulnar styloid fracture. Other fractures seen. Bone mineralization is normal. Joint spaces are otherwise well- maintained. Right elbow: Bone mineralization is normal. No acute or healed fractures. Soft tissues are unremarkable. Joint spaces are well-maintained. Left elbow: Bone mineralization is normal. No acute or healed fractures. Soft tissues are unremarkable. Joint spaces are well-maintained. Left shoulder: Mild osteopenia. Joint spaces are well-maintained. No acute or healed fractures. Soft tissues are unremarkable. IMPRESSION: 1. Mildly impacted intra-articular fracture of the distal right radius with minimal cortical step-off at the articular surface. 2. Minimally displaced ulnar styloid chip fracture. 3. No acute osseous abnormality of the right elbow. 4. No acute osseous abnormality of the left elbow 5. No acute osseous abnormality of the left shoulder Electronically signed by: Guilherme Velez MD (04/21/2020 9:30 PM) [facility] DICTATED and SIGNED BY: GUILHERME VELEZ MD DATE: 04/21/20 [id number] PATIENT: DANA BHAKTA ACCOUNT: [id number] : 1950 LOCATION: ER AGE: 69 SEX: F EXAM STATUS: REG ER ORD. PHYSICIAN: EMILIA WEEKS DO REASON: elbow pain PROCEDURE: CT UPPR EXTREMTY WO CONTRST LT EXAM: CT left elbow without contrast DATE: 04/21/2020 10:34 PM COMPARISON: Radiographs pars fracture INDICATION: Reason: elbow pain / Spl. Instructions: / History: TECHNIQUE: CT of the left elbow was performed without IV contrast. Axial, coronal and sagittal reformatted images were generated. PQRS compliance statement - One or more of the following individualized dose reduction techniques were utilized for this study: 1. Automated exposure control 2. Adjustment of the mA and/or kV according to patient size 3. Use of iterative reconstruction technique FINDINGS: Mild articular surface depression of the radial head suspicious for nondisplaced radial head fracture. Moderate left elbow joint effusion. Mild dorsal soft tissue swelling. IMPRESSION: Suspected slightly depressed left radial head fracture with moderate left elbow joint effusion. VTE Prophylaxis Ordered VTE Prophylaxis Devices: No VTE Pharmacological Prophylaxi: Yes Assessment/Plan Assessment/Plan Intra-articular fracture distal right radius Minimally displaced right ulnar styloid chip fracture Suspected left radial head fracture with joint effusion DM2 Plan: Consultation placed to orthopedic surgery Sugar tong splint and posterior long-arm splint was placed in the ED Pain management PT/OT Resume home medications FEN - ADA diet PPX - Heparin FULL CODE Dispo - observation for above Justifications for Admission Other Justification ELLEN HARO MD Apr 22, 2020 06:55
[2020-04-22] MEDS ORDERED: IBUPROFEN 400 MG TABLET. PO PRN (07:00)
[2020-04-22] MEDS ORDERED: CALCIUM CARBONATE 500 MG TAB.CHEW PO PRN (07:00)
[2020-04-22] MEDS ORDERED: ACETAMINOPHEN 325 MG TABLET. PO PRN (07:00)
[2020-04-22] MEDS ORDERED: BISACODYL 10 MG SUPP.RECT. PR PRN (07:00)
[2020-04-22] MEDS ORDERED: HYDROcodone/APAP 5/325MG 1 TAB TABLET PO PRN ×2 (07:00)
[2020-04-22] MEDS ORDERED: MAG HYDROX/ALUMINUM HYD/SIMETH 30 ML ORAL.SUSP PO PRN (07:00)
[2020-04-22] MEDS ORDERED: oxyCODONE/APAP 5/325 1 TAB TABLET PO PRN (07:00)
[2020-04-22] MEDS ORDERED: ZOLPIDEM 5 MG TABLET. PO PRN (07:00)
[2020-04-22] MEDS ORDERED: ONDANSETRON PF 4 MG/2 ML VIAL. IVP PRN (07:00)
[2020-04-22] MEDS ORDERED: DEXTROSE 50% 25 GM / 50ML DISP.SYRIN. IV PRN (07:00)
[2020-04-22] MEDS ORDERED: MAGNESIUM HYDROXIDE 2,400 MG/30 ML ORAL.SUSP. PO PRN (07:00)
[2020-04-22] MEDS ORDERED: IV DEXTROSE 5% 250 ML BAG. IV PRN (07:00)
--- NOTE | 2020-04-22 07:13 | NUR ---
called consult to dr machado at this time
[2020-04-22] MEDS: HEPARIN for SUB-Q USE 5,000 UNIT/ML VIAL. SQ SCH ×3 (07:15→21:31)
[2020-04-22] MEDS: METOPROLOL TART IMMED RELEASE 50 MG TABLET. PO SCH ×2 (08:25→21:28)
[2020-04-22] MEDS: amLODIPine BESYLATE 10 MG TABLET PO SCH (08:28)
[2020-04-22] MEDS: DOCUSATE SODIUM 100 MG CAPSULE. PO SCH ×2 (08:28→21:28)
[2020-04-22] MEDS: INSULIN LISPRO 300 UNITS/3 ML VIAL. SQ SCH ×3 (09:28→17:16)
--- NOTE | 2020-04-22 09:55 | NUR ---
Dr. Richard notified of pt not having access to draw labs due to casts for injuries to bilat. UE. Dr. Richard said to hold lab work until Ortho see's patient today with POC.
--- NOTE | 2020-04-22 10:07 | NUR ---
SW following. Discussed with RN, pt from home with sister, room air, ada diet. Ortho consulted. PT/OT to work with pt. Pt likely will need SNF upon discharge. SW will continue to follow.
--- NOTE | 2020-04-22 11:38 | PDOC2 ---
CONSULT Date of Consult Date of Consult DATE: 04/22/20 TIME: 11:33 Reason for Consult Reason for Consult: Left proximal radius fracture, right distal radius fracture Identification/Chief Complaint Chief Complaint Left elbow pain, right wrist pain History of Present Illness Reason for Visit: This is a 69-year-old female who sustained a fall from standing. She reports immediate pain in her bilateral arms. Her right wrist is more severe than her left elbow. She denies any history of previous trauma or injury to the bilateral upper extremities. She reports pain with range of motion in her right digits. She denies any numbness or tingling distally in the bilateral upper extremities. She denies any history of previous surgery. Past Medical History Cardiovascular: HTN, Hyperlipidemia Heme/Onc: Anemia NOS Endocrine: Diabetes Family History Family History: Heart Disease Social History Quit ALCOHOL: rare Drugs: None Current Problem List Problem List Problems Medical Problems: (1) Fall Status: Acute (2) Fracture of right distal radius Status: Acute (3) Fracture of right ulnar styloid Status: Acute (4) Left radial head fracture Status: Acute Current Medications Current Medications Current Medications Fentanyl Citrate (Fentanyl 2ml Vial) 25 mcg 1X ONCE IVP Last administered on 04/21/20at 19:09; Start 04/21/20 at 19:00; Stop 04/21/20 at 19:01; Status DC Fentanyl Citrate (Fentanyl 2ml Vial) 25 mcg 1X ONCE IVP Last administered on 04/21/20at 20:50; Start 04/21/20 at 20:45; Stop 04/21/20 at 20:49; Status DC Fentanyl Citrate (Fentanyl 2ml Vial) 25 mcg 1X ONCE IVP Last administered on 04/21/20at 22:17; Start 04/21/20 at 22:00; Stop 04/21/20 at 22:01; Status DC Fentanyl Citrate (Fentanyl 2ml Vial) 25 mcg 1X ONCE IVP Last administered on 04/22/20at 00:14; Start 04/21/20 at 22:30; Stop 04/21/20 at 22:31; Status DC Ondansetron HCl (Zofran) 4 mg PRN Q8HRS PRN IV NAUSEA/VOMITING 1ST CHOICE; Start 04/21/20 at 23:30; Stop 04/22/20 at 23:29 Fentanyl Citrate (Fentanyl 2ml Vial) 25 mcg PRN Q4HRS PRN IV SEVERE PAIN 7-10; Start 04/21/20 at 23:30; Stop 04/22/20 at 01:10; Status DC Fentanyl Citrate (Fentanyl 2ml Vial) 75 mcg PRN Q2HR PRN IV SEVERE PAIN 7-10 Last administered on 04/22/20at 09:42; Start 04/22/20 at 01:15 Ondansetron HCl (Zofran) 4 mg PRN Q6HRS PRN IVP NAUSEA/VOMITING; Start 04/22/20 at 07:00 Al Hydroxide/Mg Hydroxide (Mylanta Plus Xs) 30 ml PRN Q3HRS PRN PO HEARTBURN / GAS; Start 04/22/20 at 07:00 Calcium Carbonate/ Glycine (Tums) 500 mg PRN Q3HRS PRN PO UPSET STOMACH; Start 04/22/20 at 07:00 Zolpidem Tartrate (Ambien) 5 mg PRN QHS PRN PO INSOMNIA, MAY REPEAT IN 1HR; Start 04/22/20 at 07:00 Acetaminophen/ Hydrocodone Bitart (Lortab 5/325) 1 tab PRN Q4HRS PRN PO MILD PAIN 1-3; Start 04/22/20 at 07:00 Acetaminophen/ Hydrocodone Bitart (Lortab 5/325) 2 tab PRN Q4HRS PRN PO MODERATE PAIN, SEVERE PAIN; Start 04/22/20 at 07:00 Oxycodone/ Acetaminophen (Percocet 5/325) 1 tab PRN Q4HRS PRN PO MILD PAIN, 2ND CHOICE; Start 04/22/20 at 07:00 Oxycodone/ Acetaminophen (Percocet 5/325) 2 tab PRN Q4HRS PRN PO MODERATE PAIN, SEVERE PAIN; Start 04/22/20 at 07:00 Acetaminophen (Tylenol) 650 mg PRN Q6HRS PRN PO Headaches, Temp > 101.5F; Start 04/22/20 at 07:00 Ibuprofen (Motrin) 400 mg PRN Q6HRS PRN PO MILD PAIN 1-3; Start 04/22/20 at 07:00 Magnesium Hydroxide (Milk Of Magnesia) 2,400 mg PRN Q12HR PRN PO CONSTIPATION; Start 04/22/20 at 07:00 Bisacodyl (Dulcolax Supp) 10 mg PRN DAILY PRN ME CONSTIPATION; Start 04/22/20 at 07:00 Heparin Sodium (Porcine) (Heparin Sodium) 5,000 unit Q8HRS SQ ; Start 04/22/20 at 07:15 Amlodipine Besylate (Norvasc) 10 mg DAILY PO ; Start 04/22/20 at 09:00 Docusate Sodium (Colace) 100 mg BID PO ; Start 04/22/20 at 09:00 Lisinopril (Prinivil) 20 mg QHS PO ; Start 04/22/20 at 21:00 Metoprolol Tartrate (Lopressor) 100 mg BID PO Last administered on 04/22/20at 08:25; Start 04/22/20 at 09:00 Atorvastatin Calcium (Lipitor) 10 mg QHS PO ; Start 04/22/20 at 21:00 Insulin Human Lispro (HumaLOG) 0-7 UNITS TIDWMEALS SQ Last administered on 04/22/20at 09:28; Start 04/22/20 at 08:00 Dextrose (Dextrose 50%-Water Syringe) 12.5 gm PRN Q15MIN PRN IV SEE COMMENTS; Start 04/22/20 at 07:00 Dextrose (Iv Dextrose 5%) 250 ml PRN Q15MIN PRN IV SEE COMMENTS; Start 04/22/20 at 07:00 Active Scripts Active Reported Colace (Docusate Sodium) 100 Mg Capsule 1 Cap PO BID Zofran Odt (Ondansetron) 4 Mg Tab.rapdis 1 Tab SL Q8HRS Percocet 5-325 Mg Tablet (Oxycodone/Acetaminophen) 1 Each Tablet 1 Tab PO Q3HRS Lisinopril 20 Mg Tablet 1 Tab PO QHS Xalatan (Latanoprost) 2.5 Ml Drops 1 Drop EACHEYE QHS Tramadol Hcl 50 Mg Tablet 50 Mg PO DAILY PRN Metoprolol Tartrate 100 Mg Tablet 100 Mg PO BID Amlodipine Besylate 10 Mg Tablet 10 Mg PO DAILY Pravastatin Sodium 40 Mg Tablet 1 Tab PO QHS Allergies Allergies: Coded Allergies: metformin (Verified Allergy, Severe, ANAPHYLAXIS, 08/15/16) morphine (Verified Allergy, Intermediate, 08/15/16) I S O L A T I O N *CONTACT* (Verified Allergy, Unknown, 08/15/16) ESBL + ROS Review of System Negative except as above Physical Exam Physical Exam Alert and oriented x3, no acute distress, afebrile with vital signs stable Right upper extremity: Splint in place, clean, dry, and intact. Capillary refill less than 2 seconds to the tips of the digits. Tenderness with range of motion at the digits. Sensation intact to light touch at the tips of all digits. Left upper extremity: Splint in place, clean, dry, and intact. Capillary refill less than 2 seconds to the tips of digits. Range of motion of the digits intact. Sensation intact light touch at the tips of all digits. Vitals VITALS Vital Signs Date Time Temp Pulse Resp B/P (MAP) Pulse Ox O2 Delivery O2 Flow Rate FiO2 04/22/20 10:28 98.1 71 18 174/70 (104) 100 Room Air 98.1 Labs Labs Laboratory Tests Test 04/22/20 00:54 04/22/20 07:42 04/22/20 11:15 Glucose (Fingerstick) 151 mg/dL (70-99) 245 mg/dL (70-99) 187 mg/dL (70-99) Laboratory Tests Test 04/22/20 00:54 04/22/20 07:42 04/22/20 11:15 Glucose (Fingerstick) 151 mg/dL (70-99) 245 mg/dL (70-99) 187 mg/dL (70-99) Images Images Right distal radius fracture with minimal displacement Possible left radial neck fracture Assessment/Plan Assessment/Plan 69-year-old female with a left proximal radius fracture and right distal radius fracture Plan for nonweightbearing at the bilateral upper extremities. We will proceed with initial nonoperative management. We discussed that the elbow fracture was unlikely to require surgery. We discussed that close follow-up regarding her right wrist fracture was necessary to ensure no additional displacement occurs. We will plan for follow-up as an outpatient next week. We will remove splints at that time and repeat x-rays. If additional displacement noted at the wrist consider surgical intervention. She is stable for discharge today. She voiced agreement and understanding of the plan. We will sign off, please notify if intervention needed sooner. MARY BOYCE MD Apr 22, 2020 11:38
[2020-04-22] MEDS: oxyCODONE/APAP 5/325 1 TAB TABLET PO PRN ×2 (16:36→21:34)
[2020-04-22] MEDS ORDERED: ATORVASTATIN 10MG TABLET PO SCH (21:00)
[2020-04-22] MEDS ORDERED: LISINOPRIL 20 MG TABLET PO SCH (21:00)
--- NOTE | 2020-04-22 23:20 | NUR ---
Patient's O2 saturation for 2300 vital signs was 80% on room air. Patient not in any apparent distress. Asked patient if she wears oxygen at home or a CPAP/BiPAP, patient stated no. Placed 2L NC on patient, O2 increased to 95-97%. Will leave O2 on during sleep periods, recheck at 0300 vitals, and pass along to day RN to reassess in AM.
[2020-04-23 03:00] VITALS: BP 169/69
[2020-04-23] MEDS: oxyCODONE/APAP 5/325 1 TAB TABLET PO PRN ×3 (03:17→12:44)
[2020-04-23] MEDS: HEPARIN for SUB-Q USE 5,000 UNIT/ML VIAL. SQ SCH (06:36)
--- NOTE | 2020-04-23 06:57 | PDOC ---
[employer] PROGRESS NOTE Date of Service DOS: DATE: 04/23/20 TIME: 06:54 Chief Complaint Chief Complaint Intra-articular fracture distal right radius Minimally displaced right ulnar styloid chip fracture Suspected left radial head fracture with joint effusion DM2 Plan: Consultation placed to orthopedic surgery Sugar tong splint and posterior long-arm splint was placed in the ED Pain management PT/OT Resume home medications FEN - ADA diet PPX - Heparin FULL CODE Dispo - observation for above History of Present Illness History of Present Illness Patient is 69-year-old female with past medical history hypertension, DM2, who presents to the ED for evaluation after mechanical fall. She reports falling forward after stumbling over a curve yesterday afternoon. She denies head injury or loss of consciousness. Since that time she complains of right forearm and wrist pain, and left elbow pain, 10/10. Pain aggravated by movement. She is not on any blood thinners. Upon evaluation in ED she was noted to have right radius, right ulna, and suspected left radial head fracture. Orthopedic surgery was consulted in the ED. Will admit patient for further medical management. 04/23: Patient seen and evaluated. No acute events overnight. She is afebrile. Pain controlled with Percocet. She feels well for discharge today home with family care. She will follow up with orthopedic surgery outpatient. Greater than 30 minutes spent managing the discharge of this patient. Vitals/I&O Vitals/I&O: Vital Signs Date Time Temp Pulse Resp B/P (MAP) Pulse Ox O2 Delivery O2 Flow Rate FiO2 04/23/20 04:17 97 Room Air 04/23/20 03:00 97.6 53 18 169/69 (102) 2.0 97.6 I & O 04/22/20 04/22/20 04/23/20 15:00 23:00 07:00 Intake Total 0 ml 720 ml 100 ml Balance 0 ml 720 ml 100 ml Physical Exam General: Alert, Oriented X3, Cooperative, No acute distress Heart: Regular rate Lungs: Clear Abdomen: Normal bowel sounds, Soft Extremities: No cyanosis, Normal pulses, Other (Bilateral splints to upper extremities) Skin: No rashes, No breakdown Labs Labs: Laboratory Tests Test 04/22/20 07:42 04/22/20 11:15 04/22/20 16:38 04/22/20 20:00 Glucose (Fingerstick) 245 mg/dL (70-99) 187 mg/dL (70-99) 191 mg/dL (70-99) 255 mg/dL (70-99) Assessment and Plan Assessmemt and Plan Problems Medical Problems: (1) Fall Status: Acute (2) Fracture of right distal radius Status: Acute (3) Fracture of right ulnar styloid Status: Acute (4) Left radial head fracture Status: Acute Comment Review of Relevant I have reviewed the following items kiara (where applicable) has been applied. Medications: Current Medications Medications (Trade) Dose Ordered Sig/Bharat Route PRN Reason Start Time Stop Time Status Last Admin Dose Admin Acetaminophen/ Hydrocodone Bitart (Lortab 5/325) 2 tab PRN Q4HRS PRN PO MODERATE PAIN, SEVERE PAIN 04/22/20 07:00 04/22/20 13:53 Oxycodone/ Acetaminophen (Percocet 5/325) 1 tab PRN Q4HRS PRN PO MILD PAIN, 2ND CHOICE 04/22/20 07:00 04/23/20 03:17 Heparin Sodium (Porcine) (Heparin Sodium) 5,000 unit Q8HRS SQ 04/22/20 07:15 04/23/20 06:36 Docusate Sodium (Colace) 100 mg BID PO 04/22/20 09:00 04/22/20 21:28 Lisinopril (Prinivil) 20 mg QHS PO 04/22/20 21:00 04/22/20 21:28 Metoprolol Tartrate (Lopressor) 100 mg BID PO 04/22/20 09:00 04/22/20 21:28 Atorvastatin Calcium (Lipitor) 10 mg QHS PO 04/22/20 21:00 04/22/20 21:28 Insulin Human Lispro (HumaLOG) 0-7 UNITS TIDWMEALS SQ 04/22/20 08:00 04/22/20 17:16 Justifications for Admission Other Justification Multiple fractures ELLEN HARO MD Apr 23, 2020 06:57
[2020-04-23 07:00] VITALS: BP 163/76
--- NOTE | 2020-04-23 07:00 | PDOC3 ---
Discharge Summary Visit Information Date of Admission: Apr 22, 2020 Date of Discharge: Apr 23, 2020 Final Diagnosis Problems Medical Problems: (1) Fall Status: Acute (2) Fracture of right distal radius Status: Acute (3) Fracture of right ulnar styloid Status: Acute (4) Left radial head fracture Status: Acute Brief Hospital Course Allergies Allergies Coded Allergies Type Severity Reaction Last Updated Verified metformin Allergy Severe ANAPHYLAXIS 08/15/16 Yes morphine Allergy Intermediate 08/15/16 Yes I S O L A T I O N *CONTACT* Allergy Unknown 08/15/16 Yes Vital Signs Vital Signs Date Time Temp Pulse Resp B/P (MAP) Pulse Ox O2 Delivery O2 Flow Rate FiO2 04/23/20 04:17 97 Room Air 04/23/20 03:00 97.6 53 18 169/69 (102) 2.0 97.6 Lab Results Laboratory Tests Test 04/22/20 00:54 04/22/20 07:42 04/22/20 11:15 04/22/20 16:38 Glucose (Fingerstick) 151 mg/dL (70-99) 245 mg/dL (70-99) 187 mg/dL (70-99) 191 mg/dL (70-99) Test 04/22/20 20:00 Glucose (Fingerstick) 255 mg/dL (70-99) Laboratory Tests Test 04/22/20 07:42 04/22/20 11:15 04/22/20 16:38 04/22/20 20:00 Glucose (Fingerstick) 245 mg/dL (70-99) 187 mg/dL (70-99) 191 mg/dL (70-99) 255 mg/dL (70-99) Brief Hospital Course Ms. Tapia is a 69 old female who presented with intra-articular fracture distal right radius, minimally displaced right ulnar styloid chip fracture, and suspected left radial head fracture with joint effusion. Consultation was placed orthopedic surgery. She was placed in a sugar tong splint and posterior long-arm splint. Plan for nonweightbearing at the bilateral upper extremities, and initial nonoperative management. Stable for discharge home with family care and outpatient orthopedic surgery follow-up. Discharge Information Condition at Discharge: Stable Follow Up: Weeks Disposition/Orders: D/C to Home Scheduled Amlodipine Besylate (Amlodipine Besylate) 10 Mg Tablet, 10 MG PO DAILY, (Reported) Entered as Reported by: NIXON BELL on 02/12/141102 Last Action: Continued on 04/22/20699 by ELLEN HARO MD Docusate Sodium (Colace) 100 Mg Capsule, 1 CAP PO BID for CONSTIPATION, #60 NS (Reported) Entered as Reported by: SONA AVILA on 08/15/16917 Last Action: Continued on 04/22/20699 by ELLEN HARO MD Latanoprost (Xalatan) 2.5 Ml Drops, 1 DROP EACHEYE QHS, #2.5 Ref 6 (Reported) Entered as Reported by: NIXON BELL on 02/12/14 110 Lisinopril (Lisinopril) 20 Mg Tablet, 1 TAB PO QHS, #30 Ref 5 (Reported) Entered as Reported by: TERRI SALEEM on 08/12/1646 Last Action: Continued on 04/22/20699 by ELLEN HARO MD Metoprolol Tartrate (Metoprolol Tartrate) 100 Mg Tablet, 100 MG PO BID for FOR HYPERTENSION, #60 Ref 0 (Reported) Entered as Reported by: NIXON BELL on 02/12/141104 Last Action: Converted on 04/22/20699 by ELLEN HARO MD Ondansetron (Zofran Odt) 4 Mg Tab.rapdis, 1 TAB SL Q8HRS for NAUSEA, #20 NS (Reported) Entered as Reported by: SONA AVILA on 08/15/16916 Oxycodone/Apap 5-325 (Percocet 5-325 Mg Tablet ) 1 Each Tablet, 1 TAB PO Q3HRS for PAIN, #50 NS (Reported) Entered as Reported by: SONA AVILA on 08/15/16916 Pravastatin Sodium (Pravastatin Sodium) 40 Mg Tablet, 1 TAB PO QHS, #90 Ref 1 (Reported) Entered as Reported by: NIXON BELL on 02/12/141101 Last Action: Converted on 04/22/20699 by ELLEN HARO MD Scheduled PRN Tramadol Hcl (Tramadol Hcl) 50 Mg Tablet, 50 MG PO DAILY PRN for PAIN, Ref 0 (Reported) Entered as Reported by: NIXON BELL on 02/12/141104 Justicifation of Admission Dx: Justifications for Admission: Justification of Admission Dx: Yes Fracture: Fracture ELLEN HARO MD Apr 23, 2020 07:00
[2020-04-23] MEDS: DOCUSATE SODIUM 100 MG CAPSULE. PO SCH (08:34)
[2020-04-23] MEDS: amLODIPine BESYLATE 10 MG TABLET PO SCH (08:35)
[2020-04-23] MEDS: METOPROLOL TART IMMED RELEASE 50 MG TABLET. PO SCH (08:35)
[2020-04-23] MEDS: INSULIN LISPRO 300 UNITS/3 ML VIAL. SQ SCH ×2 (08:38→12:18)
--- NOTE | 2020-04-23 10:10 | NUR ---
SW following. Discussed with RN, pt from home with sister, room air, ada diet. PT/OT recommending home health or home with care. SW met with pt (no isolation precautions at the time, pt does not want home health at this time, feels she and her sister will manage okay. Pt denied any further SW needs. Anticipate discharge home with self care today. SW will continue to follow.
[2020-04-23 11:00] VITALS: BP 174/88
--- NOTE | 2020-04-23 13:00 | NUR ---
Pt. discharged to home with Rx, pt and friend verbalized understanding of discharge instructions. Melissa WALDRON.
== END 2020-04-23 13:54 | disposition home or self-care (01) ==
LOC: ER 16:20 → 4 NORTH 23:15
PROVIDERS: ADMIT Internal Medicine; ATTEND Internal Medicine
DX: S52.501A Unspecified fracture of the lower end of right radius, initial encounter for closed fracture (principal); S52.611A Displaced fracture of right ulna styloid process, initial encounter for closed fracture; S52.122A Displaced fracture of head of left radius, initial encounter for closed fracture; I10 Essential (primary) hypertension; E11.9 Type 2 diabetes mellitus without complications; E78.5 Hyperlipidemia, unspecified; E78.00 Pure hypercholesterolemia, unspecified; D64.9 Anemia, unspecified; M19.90 Unspecified osteoarthritis, unspecified site; Z87.891 Personal history of nicotine dependence; Z90.710 Acquired absence of both cervix and uterus; Z90.49 Acquired absence of other specified parts of digestive tract; Z98.890 Other specified postprocedural states; Z96.641 Presence of right artificial hip joint; W01.0XXA Fall on same level from slipping, tripping and stumbling without subsequent striking against object, initial encounter; Y93.01 Activity, walking, marching and hiking; Y92.89 Other specified places as the place of occurrence of the external cause; Y99.8 Other external cause status
CPT/HCPCS: 29105; 29125; 70450; 72125; 73030; 73080; 73090; 73120; 73200; 82962; 96372; 96374; 96376; 97116; 97162; 97166; 97535; 99285; G0378; J1644; J1815; J3010; G0379

== ENCOUNTER 2020-09-28 13:26 | Emergency (ER) | payer MEDICARE ==
[~2020-09-28] VITALS: Ht 165.1 cm; Wt 88.1 kg
--- NOTE | 2020-09-28 14:35 | PHYS DOC ---
Past Medical History Past Medical History: Arthritis, Diabetes-Type II, High Cholesterol, Hype rtension, Other Additional Past Medical Histor: HEART MURMUR, BLOOD TRANS REACTION Past Surgical History: Cholecystectomy, Hip Replacement, Hysterectomy, Tonsillectomy, Other Additional Past Surgical Histo: HERNIA,SHOULDER Smoking Status: Former Smoker Alcohol Use: Rarely Drug Use: None General Adult EDM: Chief Complaint: SHORTNESS OF BREATH HPI: HPI: 69-year-old female presents to the emergency department complaining of shortness of breath for the past 3 days. She reports similar symptoms in the past when she says she was "filled up with fluid ". She endorses a history of hypertension, diabetes and is unsure if she has heart failure or not. She denies any chest pain with the shortness of breath. She does not take submental oxygen at home. She has been vaccinated for Covid. The patient denies nausea, vomiting, fever, chills, abdominal pain, urinary symptoms, cough, recent trauma, or any other complaints. Review of Systems: Review of Systems: ROS is otherwise negative except for what was mentioned in HPI Heart Score: C/O Chest Pain: No Allergies: Allergies: Allergies Coded Allergies Type Severity Reaction Last Updated Verified metformin Allergy Severe ANAPHYLAXIS 08/15/16 Yes morphine Allergy Intermediate 08/15/16 Yes I S O L A T I O N *CONTACT* Allergy Unknown 08/15/16 Yes Physical Exam: PE: Constitutional: No acute distress, non-toxic appearance. HENT: Atraumatic, bilateral external ears normal, nose normal. Eyes: PERRLA, EOMI, conjunctiva normal, no discharge. Neck: Normal range of motion, supple, no stridor. Cardiovascular: Heart rate regular rhythm. 2+ radial pulses Lungs & Thorax: No respiratory distress, symmetrical expansion. Coarse breath sounds bilaterally. Abdomen: Soft, no tenderness Skin: Warm, dry. Extremities: No tenderness, no cyanosis, ROM intact, 2+ edema bilaterally. Neurologic: Alert and oriented X 3, normal motor function, normal sensory function, no focal deficits noted. GCS 15. Psychologic: Affect normal, judgment normal, mood normal. Current Patient Data: Labs: Laboratory Tests Test 09/28/20 13:44 09/28/20 14:06 09/28/20 14:27 Urine Collection Type Unknown Urine Color Yellow Urine Clarity Clear Urine pH 6.5 (<5.0-8.0) Urine Specific Stryker 1.015 (1.000-1.030) Urine Protein Negative mg/dL (NEG-TRACE) Urine Glucose (UA) 250 mg/dL (NEG) Urine Ketones (Stick) Negative mg/dL (NEG) Urine Blood Negative (NEG) Urine Nitrite Negative (NEG) Urine Bilirubin Negative (NEG) Urine Urobilinogen Dipstick 1.0 mg/dL (0.2 mg/dL) Urine Leukocyte Esterase Small (NEG) Urine RBC 0 /HPF (0-2) Urine WBC 5-10 /HPF (0-4) Urine Squamous Epithelial Cells Few /LPF Urine Bacteria 0 /HPF (0-FEW) SARS-CoV-2 Antigen (Rapid) Negative (NEGATIVE) White Blood Count 6.1 x10^3/uL (4.0-11.0) Red Blood Count 3.96 x10^6/uL (3.50-5.40) Hemoglobin 12.7 g/dL (12.0-15.5) Hematocrit 35.9 % (36.0-47.0) Mean Corpuscular Volume 91 fL (79-100) Mean Corpuscular Hemoglobin 32 pg (25-35) Mean Corpuscular Hemoglobin Concent 35 g/dL (31-37) Red Cell Distribution Width 14.3 % (11.5-14.5) Platelet Count 142 x10^3/uL (140-400) Neutrophils (%) (Auto) 68 % (31-73) Lymphocytes (%) (Auto) 18 % (24-48) Monocytes (%) (Auto) 11 % (0-9) Eosinophils (%) (Auto) 3 % (0-3) Basophils (%) (Auto) 1 % (0-3) Neutrophils # (Auto) 4.2 x10^3/uL (1.8-7.7) Lymphocytes # (Auto) 1.1 x10^3/uL (1.0-4.8) Monocytes # (Auto) 0.6 x10^3/uL (0.0-1.1) Eosinophils # (Auto) 0.2 x10^3/uL (0.0-0.7) Basophils # (Auto) 0.1 x10^3/uL (0.0-0.2) Sodium Level 136 mmol/L (136-145) Potassium Level 3.6 mmol/L (3.5-5.1) Chloride Level 99 mmol/L (98-107) Carbon Dioxide Level 31 mmol/L (21-32) Anion Gap 6 (6-14) Blood Urea Nitrogen 10 mg/dL (7-20) Creatinine 0.5 mg/dL (0.6-1.0) Estimated GFR (Cockcroft-Gault) 122.0 BUN/Creatinine Ratio 20 (6-20) Glucose Level 241 mg/dL (70-99) Calcium Level 8.6 mg/dL (8.5-10.1) Magnesium Level 1.7 mg/dL (1.8-2.4) Total Bilirubin 0.5 mg/dL (0.2-1.0) Aspartate Amino Transf (AST/SGOT) 21 U/L (15-37) Alanine Aminotransferase (ALT/SGPT) 35 U/L (14-59) Alkaline Phosphatase 65 U/L (46-116) Troponin I Quantitative 0.018 ng/mL (0.000-0.055) TF-Ajz-J-Type Natriuretic Peptide 972 pg/mL (0-124) Total Protein 6.3 g/dL (6.4-8.2) Albumin 3.5 g/dL (3.4-5.0) Albumin/Globulin Ratio 1.3 (1.0-1.7) Vital Signs: Vital Signs Date Time Temp Pulse Resp B/P (MAP) Pulse Ox O2 Delivery O2 Flow Rate FiO2 09/28/20 16:43 74 22 178/86 (116) 94 Room Air 09/28/20 15:53 68 24 147/55 (85) 99 Nasal Cannula 2.0 09/28/20 15:20 66 21 119/53 (75) 98 Nasal Cannula 2.0 09/28/20 14:50 66 17 148/59 (88) 99 Nasal Cannula 2.0 09/28/20 14:25 70 21 167/91 (116) 100 Nasal Cannula 2.0 09/28/20 13:40 98.7 93 24 172/83 (116) Nasal Cannula 2.0 98.7 EKG: EKG: Normal sinus rhythm rate of 70, [address] depression in v6 without reciprocal change, no ST elevations, occasional PVC, normal axis, normal MD, QRS, and QTc intervals. Impression: No STEMI; compared to EKG 02/12/2014. interpreted by me, Sukumar Alonso D.O. Radiology/Procedures: Radiology/Procedures: PROCEDURE: PORTABLE CHEST 1V EXAM: Chest, single view. HISTORY: Shortness of breath. COMPARISON: 01/10/2020 FINDINGS: A frontal view of the chest is obtained. There is bilateral lower lobe atelectasis or interstitial infiltrate. Is a superimposed on suspected chronic diffuse interstitial changes. There is a prominent cardiac silhouette, likely accentuated due to portable technique. IMPRESSION: Suspected chronic diffuse interstitial changes with superimposed bilateral lower lobe atelectasis or interstitial infiltrate. Electronically signed by: Latia Nieves MD (09/28/2020 2:45 PM) Course & Med Decision Making: Course & Med Decision Making Patient's labs as above, will treat with magnesium, doxycycline for pneumonia. A walking desaturation study was performed in the emergency department. Lowest O2 sat was 93%, which is acceptable given patient's past history of smoking. She is off oxygen at this time and looks well. We will discharge her home. Covid rapid test was negative, PCR test is pending. curb 65 score of 1. No wheezing on exam. Patient will likely not benefit from admission today. Strict return precautions were discussed. Advised to follow up with chart collector and pcp this week and return if there are any concerning symptoms at home My Orders - SUKUMAR ALONSO DO Procedure Category Date Status Time Vital Signs Monitoring ER 09/28/20 Transmitted 14:26 Cardiac Monitoring ER 09/28/20 Transmitted 14:26 Oxygen Delivery MARK 09/28/20 In Process Cbc W Autodiff LAB 09/28/20 Complete 14:26 Magnesium LAB 09/28/20 Complete 14:26 Ua, Cult If Indicated LAB 09/28/20 Complete 14:26 Portable Chest 1v RAD 09/28/20 Resulted 14:26 Troponin I Stat MARK 09/28/20 In Process 14:26 Nt-Pro Bnp LAB 09/28/20 Complete 14:26 Troponini LAB 09/28/20 Complete 14:26 Troponini LAB 09/28/20 Logged 17:26 Troponini LAB 09/28/20 Logged 20:26 Comprehensive LAB 09/28/20 Complete Metabolic Panel 14:26 Sars Cov2 ([place]) LAB 09/28/20 In Process 14:26 Sars Antigen Ana M Rapid LAB 09/28/20 Complete 14:26 Furosemide Inj (Lasix) PHA 09/28/20 Complete 14:45 Urine Culture EUSEBIA 09/28/20 In Process 14:47 Departure Departure Impression: Primary Impression: Community acquired pneumonia Additional Impression: Hypomagnesemia Disposition: HOME / SELF CARE / HOMELESS Condition: STABLE Referrals: DAR GARD[facility] CLIPPER (PCP) Patient Instructions: Pneumonia, Adult, [id number] Additional Instructions: You were seen in the emergency department and your health condition was deemed not to require admission to the hospital. It is important to realize that we can only evaluate you during the time that you are in her department. Occasionally health conditions can worsen upon leaving the emergency department. If this were to happen, please return to and allow us the opportunity to reevaluate you. It is a pleasure to take care of your health needs. Return to the ER if your symptoms worsen, do not improve, or if you develop additional symptoms that are concerning to you You have been given a prescription for doxycycline. This medicine is an antibiotic for pneumonia. Please take as prescribed for the full course of the prescription. Do not stop taking the medicine early if you feel better, as this could risk building antibiotic resistance and may put you at risk for a more harmful infection later. The most common side effect of antibiotics include nausea, vomiting, diarrhea and rash. Please come to be evaluated if you develop any symptoms that are concerning to you. One major adverse effect of antibiotics is the development of a diarrheal illness called c. diff colitis, if you develop an excessive amount of diarrhea or are concerned about this please return to the ER or consult a physician. You were also given a prescription for magnesium because your magnesium was level is low Scripts Magnesium Oxide (MAGNESIUM OXIDE) 400 Mg Tablet 1 TAB PO BID, #14 TAB 0 Refills Prov: SUKUMAR ALONSO DO 09/28/20 Doxycycline Hyclate (DOXYCYCLINE HYCLATE) 100 Mg Capsule 1 CAP PO BID for 10 Days, #20 CAP Prov: SUKUMAR ALONSO DO 09/28/20 SUKUMAR ALONSO DO Sep 28, 2020 14:35
[2020-09-28 14:36] LABS: BASO # 0.1 x10^3/uL (0.0-0.2); BASO % 1 % (0-3); EOS # 0.2 x10^3/uL (0.0-0.7); EOS % 3 % (0-3); HEMATOCRIT 35.9 % (36.0-47.0); HEMOGLOBIN 12.7 g/dL (12.0-15.5); LYMPH # 1.1 x10^3/uL (1.0-4.8); LYMPH % 18 % (24-48); MEAN CORPUSCULAR HEMOGLOBIN 32 pg (25-35); MEAN CORPUSCULAR HGB CONC 35 g/dL (31-37); MEAN CORPUSCULAR VOLUME 91 fL (79-100); MONO # 0.6 x10^3/uL (0.0-1.1); MONO % 11 % (0-9); NEUT # 4.2 x10^3/uL (1.8-7.7); NEUT % 68 % (31-73); PLATELET COUNT 142 x10^3/uL (140-400); RED BLOOD COUNT 3.96 x10^6/uL (3.50-5.40); RED CELL DISTRIBUTION WIDTH 14.3 % (11.5-14.5); WHITE BLOOD COUNT 6.1 x10^3/uL (4.0-11.0)
[2020-09-28 14:39] LABS: BILIRUBIN,URINE NEGATIVE (NEG); CLARITY,URINE CLEAR; COLOR,URINE YELLOW; NITRITE,URINE NEGATIVE (NEG); PH,URINE 6.5 (<5.0-8.0); PROTEIN,URINE NEGATIVE (NEG-TRACE)
[2020-09-28] MEDS ORDERED: FUROSEMIDE 40 MG/4 ML VIAL. IVP ONE (14:45)
[2020-09-28 14:46] LABS: BACTERIA,URINE 0 /HPF (0-FEW); RBC,URINE 0 /HPF (0-2)
--- NOTE | 2020-09-28 14:47 | RAD ---
EXAM: Chest, single view. HISTORY: Shortness of breath. COMPARISON: 01/10/2020 FINDINGS: A frontal view of the chest is obtained. There is bilateral lower lobe atelectasis or inter stitial infiltrate. Is a superimposed on suspected chronic diffuse interstitial changes. There is a p rominent cardiac silhouette, likely accentuated due to portable technique. IMPRESSION: Suspected chronic diffuse interstitial changes with superimposed bilateral lower lobe ate lectasis or interstitial infiltrate. Electronically signed by: Latia Nieves MD (09/28/2020 2:45 PM) [id number]
[2020-09-28 14:57] LABS: CALCIUM 8.6 mg/dL (8.5-10.1); CREATININE 0.5 mg/dL (0.6-1.0); POTASSIUM 3.6 mmol/L (3.5-5.1)
[2020-09-28 15:03] LABS: ALBUMIN 3.5 g/dL (3.4-5.0); ALBUMIN/GLOBULIN RATIO 1.3 (1.0-1.7); MAGNESIUM 1.7 mg/dL (1.8-2.4); TOTAL BILIRUBIN 0.5 mg/dL (0.2-1.0); TOTAL PROTEIN 6.3 g/dL (6.4-8.2)
[2020-09-28] MEDS ORDERED: MAGN400T5 PO (16:42)
[2020-09-28] MEDS ORDERED: DOXY100C3 PO (16:42)
[2020-09-28 16:43] VITALS: BP 178/86
--- NOTE | 2020-09-28 18:45 | EKG ---
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
--- NOTE | 2020-09-29 18:00 | NUR ---
IP: Informed pt of negative covid results. Pt verbalized understanding.
== END 2020-09-28 17:15 | disposition home or self-care (01) ==
LOC: ER 13:26
DX: J18.9 Pneumonia, unspecified organism (principal); Z20.822 Contact with and (suspected) exposure to COVID-19; E83.42 Hypomagnesemia; E11.9 Type 2 diabetes mellitus without complications; E78.00 Pure hypercholesterolemia, unspecified; I10 Essential (primary) hypertension; Z87.891 Personal history of nicotine dependence; Z88.1 Allergy status to other antibiotic agents; Z88.5 Allergy status to narcotic agent; Z91.041 Radiographic dye allergy status
CPT/HCPCS: 36415; 71045; 80053; 81001; 83735; 83880; 84484; 85025; 87086; 87426; 93005; 96374; 99285; J1940; U0003; U0005

== ENCOUNTER 2020-12-07 06:42 | Observation (INO) | payer MEDICARE ==
[~2020-12-07] VITALS: Ht 162.6 cm; Wt 96.1 kg
[~2020-12-07 06:42] MED LIST changes: +DOXY100C3 PO; +MAGN400T48 PO
--- NOTE | 2020-12-07 06:45 | PHYS DOC ---
Past Medical History Past Medical History: Arthritis, Diabetes-Type II, High Cholesterol, Hype rtension, Other Additional Past Medical Histor: HEART MURMUR, BLOOD TRANS REACTION Past Surgical History: Cholecystectomy, Hip Replacement, Hysterectomy, Tonsillectomy, Other Additional Past Surgical Histo: HERNIA,SHOULDER Smoking Status: Former Smoker Alcohol Use: Rarely Drug Use: None General Adult HPI: HPI: Patient is a 69 year old female who presents via EMS with shortness of breath and cough with clear sputum as well as wheezing and congestion, for the past 5 days. She reports that shortness of breath worsened last night and this morning. Her cough is worse. She denies hemoptysis. She denies fevers or chills. She denies chest pain, headache, sore throat, body aches or myalgias. She denies abdominal pain, nausea vomiting. She saw her primary care physician last week and was placed on a steroid taper. She is not taking any antibiotics. She reports having no recent imaging studies performed. EMS reported they placed her on supplemental nasal cannula oxygen secondary to oxygen saturation of 91%. She is saturating 99% on 2 L per nasal cannula currently. She does not normally wear supplemental oxygen. She reports being vaccinated against Covid. Review of Systems: Review of Systems: Constitutional: Denies fever or chills. [] Eyes: Denies change in visual acuity. [] HENT: Reports nasal congestion. Denies sore throat. Respiratory: Reports cough and shortness of breath Cardiovascular: Denies chest pain or edema. [] GI: Denies abdominal pain, nausea, vomiting, bloody stools or diarrhea. [] Musculoskeletal: Denies back pain or joint pain. [] Integument: Denies rash. [] Neurologic: Denies headache, focal weakness or sensory changes. [] ] Psychiatric: Denies depression or anxiety. [] Heart Score: C/O Chest Pain: No Risk Factors: Risk Factors: DM, Current or recent (<one month) smoker, HTN, HLP, family history of CAD, obesity. Risk Scores: Score 0 - 3: 2.5% MACE over next 6 weeks - Discharge Home Score 4 - 6: 20.3% MACE over next 6 weeks - Admit for Clinical Observation Score 7 - 10: 72.7% MACE over next 6 weeks - Early Invasive Strategies Allergies: Allergies: Allergies Coded Allergies Type Severity Reaction Last Updated Verified metformin Allergy Severe ANAPHYLAXIS 08/15/16 Yes morphine Allergy Intermediate 08/15/16 Yes I S O L A T I O N *CONTACT* Allergy Unknown 08/15/16 Yes Physical Exam: PE: Constitutional: Well developed, well nourished, no acute distress, non-toxic appearance. Harsh cough noted throughout H&P. She is chronically ill- appearing. HENT: Normocephalic, atraumatic Eyes: Sclera are clear and anicteric. Neck: Achy yet is midline, no meningismus, no tenderness. Cardiovascular:Heart rate regular rhythm, systolic murmur noted (chronic since childhood per the patient), +2 radial and +2 posterior tibial pulses bilaterally. She is well-perfused appearing Lungs & Thorax: Mild to moderate tachypnea noted. Speaks in full and clear sentences. Persistent harsh cough noted throughout exam. Diffuse bilateral basilar end expiratory wheezing noted. No stridor. No cyanosis. Abdomen: Abdomen is obese, soft, nondistended, nontender to palpation. Skin: Warm, dry, no erythema, no rash. [] Back: No tenderness Extremities: No tenderness, no cyanosis, no clubbing, ROM intact, bilateral, symmetric 1+ pitting lower extremity edema. No calf tenderness. Neurologic: Alert and oriented X 3, normal motor function, normal sensory function, no focal deficits noted. [] Psychologic: Anxious, cooperative. EKG: EKG: EKG is interpreted at 0650 Rhythm is sinus Rate is 87 bpm Ferguson is normal Baseline artifact No STEMI Radiology/Procedures: Radiology/Procedures: IMAGING REPORT Signed PATIENT: DANA BHAKTA ACCOUNT: [id number] : 1950 LOCATION: ER AGE: 69 SEX: F EXAM STATUS: PRE ER ORD. PHYSICIAN: SOUMYA MONTANA DO REASON: dyspnea, cough PROCEDURE: PORTABLE CHEST 1V EXAMINATION: Chest radiograph. VIEWS: Single AP view of the chest COMPARISON: 09/28/2020 INDICATION:69 years, Female, cough, dyspnea. FINDINGS: Stable cardiomediastinal silhouette. Similar, slightly increased bilateral lower lobe atelectasis or interstitial infiltrate, superimposed on chronic diffuse interstitial changes. No pneumothorax or sizable pleural effusion. IMPRESSION: Similar, slightly increased lower lobe atelectasis or interstitial infiltrate superimposed on diffuse interstitial changes. Electronically signed by: Agustín Dey DO (12/07/2020 7:38 AM) [facility] DICTATED and SIGNED BY: AGUSTÍN DEY DO DATE: 12/07/20 [id number] 0 Course & Med Decision Making: Course & Med Decision Making Pertinent Labs and Imaging studies reviewed. (See chart for details) The patient was given a DuoNeb and IV Solu-Medrol here. P.o. Tessalon Perles were given to help with cough. She is feeling much better. Lung exam is improved, wheezing is moderately improved. I took her off oxygen, and for a period of time she was saturating in the low 90s on room air. When she got up to move around and walk, she desaturated to the 80s. She was placed back on 2 L nasal cannula, and she is saturating in the mid to high 90s. I do recommend admission at this time. I do believe she probably has undiagnosed COPD. She has reportedly been scheduled to seen by pulmonology for some time, reportedly has a scheduled appointment later this month. She is comfortable being admitted at this time. She is accepted for admission by Dr. Cruz. Nisa Disclaimer: Nisa Disclaimer: This electronic medical record was generated, in whole or in part, using a voice recognition dictation system. Departure Departure Impression: Primary Impression: Dyspnea Qualified Codes: R06.00 - Dyspnea, unspecified Additional Impressions: Bronchospasm Hypoxia Requires supplemental oxygen Disposition: ADMITTED INPATIENT Admitting Physician: [facility] Referrals: DAR GARD[facility] HELPER (PCP) SOUMYA MONTANA DO Dec 07, 2020 06:45
[2020-12-07] MEDS ORDERED: methylPREDNISolone SOD SUCC PF 125 MG/2 ML VIAL. IV ONE (07:00)
[2020-12-07] MEDS ORDERED: BENZONATATE 100 MG CAPSULE. PO ONE (07:00)
[2020-12-07] MEDS ORDERED: IPRATRPIUM/ALBUTEROL 0.5/2.5MG 3 ML NEBU. NEB ONE (07:00)
[2020-12-07 07:39] LABS: BASO # 0.1 x10^3/uL (0.0-0.2); BASO % 1 % (0-3); EOS # 0.1 x10^3/uL (0.0-0.7); EOS % 1 % (0-3); HEMOGLOBIN 13.5 g/dL (12.0-15.5); LYMPH % 11 % (24-48); MEAN CORPUSCULAR HEMOGLOBIN 31 pg (25-35); MEAN CORPUSCULAR HGB CONC 34 g/dL (31-37); MEAN CORPUSCULAR VOLUME 91 fL (79-100); MONO # 0.8 x10^3/uL (0.0-1.1); MONO % 8 % (0-9); NEUT # 7.5 x10^3/uL (1.8-7.7); NEUT % 79 % (31-73); PLATELET COUNT 158 x10^3/uL (140-400); RED BLOOD COUNT 4.39 x10^6/uL (3.50-5.40); RED CELL DISTRIBUTION WIDTH 13.8 % (11.5-14.5); WHITE BLOOD COUNT 9.5 x10^3/uL (4.0-11.0)
--- NOTE | 2020-12-07 07:41 | RAD ---
EXAMINATION: Chest radiograph. VIEWS: Single AP view of the chest COMPARISON: 09/28/2020 INDICATION:69 years, Female, cough, dyspnea. FINDINGS: Stable cardiomediastinal silhouette. Similar, slightly increased bilateral lower lobe atelectasis or interstitial infiltrate, superimposed on chronic diffuse interstitial changes. No pneumothorax or siz able pleural effusion. IMPRESSION: Similar, slightly increased lower lobe atelectasis or interstitial infiltrate superimposed on diffuse interstitial changes. Electronically signed by: Sathya Dey DO (12/07/2020 7:38 AM) [facility]
[2020-12-07 07:43] LABS: INFLUENZA A PATIENT NEGATIVE (NEGATIVE); INFLUENZA B PATIENT NEGATIVE (NEGATIVE)
[2020-12-07 07:50] LABS: CALCIUM 8.5 mg/dL (8.5-10.1); CREATININE 0.6 mg/dL (0.6-1.0); GFR 98.8; POTASSIUM 3.3 mmol/L (3.5-5.1)
[2020-12-07 07:55] LABS: ALBUMIN 3.8 g/dL (3.4-5.0); ALBUMIN/GLOBULIN RATIO 1.3 (1.0-1.7); TOTAL BILIRUBIN 0.9 mg/dL (0.2-1.0); TOTAL PROTEIN 6.8 g/dL (6.4-8.2)
[2020-12-07] MEDS ORDERED: POTASSIUM CHLORIDE 20 MEQ TABLET.ER. PO ONE (08:30)
[2020-12-07] MEDS ORDERED: IV NORMAL SALINE 500ML BAG 500 ML IV ONE (09:00)
--- NOTE | 2020-12-07 09:19 | NUR ---
Pt given water per request and Dr. Pulliam's okay.
[2020-12-07 09:28] LABS: BILIRUBIN,URINE NEGATIVE (NEG); COLOR,URINE AMBER; NITRITE,URINE NEGATIVE (NEG); PROTEIN,URINE 30 mg/dL (NEG-TRACE)
[2020-12-07 09:38] LABS: BACTERIA,URINE MANY /HPF (0-FEW)
[2020-12-07 09:48] LABS: CLARITY,URINE CLOUDY
[2020-12-07] MEDS ORDERED: DOXYCYCLINE HYCLATE 100 MG TABLET PO ONE (10:15)
[2020-12-07] MEDS ORDERED: ALBUTEROL SULFATE 2.5 MG/3 ML NEBU. NEB ONE (12:00)
[2020-12-07] MEDS ORDERED: IV NORMAL SALINE 1000ML BAG 1,000 ML IV ONE (12:00)
[2020-12-07] MEDS ORDERED: methylPREDNISolone SOD SUCC PF 125 MG/2 ML VIAL. IV SCH (12:00)
--- NOTE | 2020-12-07 14:32 | HP ---
DATE OF SERVICE: 12/07/2020 ADMIT DATE: 12/07/2020 CHIEF COMPLAINT: Shortness of breath and cough. HISTORY OF PRESENT ILLNESS: The patient is a pleasant elderly female who probably has chronic obstructive pulmonary disease that is undiagnosed. She states she quit smoking 20 years ago, now she has been short of breath. She states she was recently tested for COVID and was negative. I believe she is vaccinated. The ER doctor was trying to get her home, but when she stands, her oxygen levels plummet. We are going to admit the patient and treat her for probable chronic obstructive pulmonary disease exacerbation. PAST MEDICAL HISTORY: Probable undiagnosed chronic obstructive pulmonary disease, tobacco abuse, but she quit smoking 20 years ago, arthritis, diabetes, hyperlipidemia, hypertension, cardiac murmur, cholecystectomy, hip replacement, hysterectomy, tonsillectomy, hernia repair, shoulder repair. ALLERGIES: METFORMIN AND MORPHINE. FAMILY HISTORY: Hypertension. SOCIAL HISTORY: She quit smoking 20 years ago. No drink or drugs. She is retired. MEDICATIONS: Reviewed, please refer to the MRAD. REVIEW OF SYSTEMS: GENERAL: No history of weight change, weakness or fevers. SKIN: No bruising, hair changes or rashes. EYES: No blurred, double or loss of vision. NOSE AND THROAT: No history of nosebleeds, hoarseness or sore throat. HEART: No history of palpitations, chest pain or shortness of breath on exertion. PULMONARY: She complains of shortness of breath and cough. GASTROINTESTINAL: Denies changes in appetite, nausea, vomiting, diarrhea or constipation. GENITOURINARY: No history of frequency, urgency, hesitancy or nocturia. NEUROLOGIC: Denies history of numbness, tingling, tremor or weakness. PSYCHIATRIC: No history of panic, anxiety or depression. ENDOCRINE: No history of heat or cold intolerance, polyuria or polydipsia. EXTREMITIES: Denies muscle weakness, joint pain, pain on walking or stiffness. PHYSICAL EXAMINATION: VITALS: Within normal limits and are stable. GENERAL: No apparent distress. Alert and oriented. HEENT: Normal cephalic atraumatic, external auditory canals are patent. EYES: Extraocular muscles are intact, pupils are equally round and reactive to light and accommodation. MUSCULOSKELETAL: Well developed, well nourished, good range of motion. ENDOCRINE: No thyromegaly was palpated, LYMPHATICS: No cervical chain or axillary nodes were noted. HEMATOPOIETIC: No bruising. NECK: Supple, no JVD, no thyromegaly was noted. LUNGS: She has bibasilar crackles and a cough. HEART: RRR, S1, S2 present. Peripheral pulses intact, no obvious murmurs were noted. ABDOMEN: Soft, nontender. Positive bowel sounds no organomegaly, normal bowel sounds. EXTREMITIES: Without any cyanosis, clubbing, or edema. Pedal pulses intact, Homans sign is negative. NEUROLOGIC: Normal speech, normal tone. A and O x 3, moves all extremities, no obvious focal deficits. PSYCHIATRIC: Normal affect, normal mood. Stable. SKIN: No ulcerations or rashes, good skin turgor, no jaundice. VASCULAR: Good capillary refill, neurovascular bundle appears to be intact. LABORATORY AND IMAGING DATA: COVID testing is negative. Hematology is normal. Electrolytes are pending. BNP 1384. Urinalysis shows moderate leukocyte esterase and 11-20 white cells. Chest x-ray shows slightly increased lower lobe atelectasis or interstitial infiltrate superimposed on diffuse interstitial changes. ASSESSMENT AND PLAN: Respiratory failure, suspect acute on chronic COPD. Perhaps this was diagnosed earlier as you know she quit smoking 20 years ago. The patient has been admitted. We will start IV steroids, breathing treatments, oxygen. We will consider antibiotics, home meds. Deep venous thrombosis prophylaxis. Full code. She does have a urinary tract infection. We will go ahead and add in Rocephin 1 gram IV q.12 hours. CHERRI/ALEJANDRO DR: Geronimo TID: [id number]
[2020-12-07] MEDS: cefTRIAXone IV Push 1 GM VIAL. IVP SCH (15:55)
[2020-12-07] MEDS: IPRATRPIUM/ALBUTEROL 0.5/2.5MG 3 ML NEBU. NEB SCH ×3 (16:35→22:00)
--- NOTE | 2020-12-07 22:08 | NUR ---
The patient, DANA BHAKTA, 69 y/o, F admitted by KARL DIAL MD, was given written information regarding hospital policies, unit procedures and contact persons. Valuables were checked and left with her.
[2020-12-07 22:15] VITALS: BP 158/68
[2020-12-08 03:00] VITALS: BP 154/56
[2020-12-08] MEDS: IPRATRPIUM/ALBUTEROL 0.5/2.5MG 3 ML NEBU. NEB SCH ×3 (05:27→14:00)
--- NOTE | 2020-12-08 05:55 | EKG ---
[facility] [address] [place] [address] Test Date: 2020-12-07 Test Time: 06:49:24 Pat Name: DANA BHAKTA Department: Room: 528 1 Gender: F Fourth Officer: : 1950 Requested By: SOUMYA MONTANA Order Number: [id number] Reading MD: Lei Beaver Measurements Intervals [place] Rate: 87 P: 90 CT: 192 QRS: 59 QRSD: 98 T: -111 QT: 380 QTc: 458 Interpretive Statements SINUS RHYTHM ST & T ABNORMALITY, CONSIDER INFEROLATERAL ISCHEMIA OR LEFT VENTRICULAR STRAIN ABNORMAL ECG Electronically Signed On 12-14-2020 10:50:08 [employer] by Lei Beaver
[2020-12-08 07:00] VITALS: BP 175/74
[2020-12-08] MEDS ORDERED: LACTOBACILLUS RHAMNOSUS GG 1 CAPSULE. PO SCH (09:00)
--- NOTE | 2020-12-08 09:18 | PDOC ---
PULMONARY PROGRESS NOTES DATE: 12/08/20 TIME: 09:18 Vitals Vital Signs Date Time Temp Pulse Resp B/P (MAP) Pulse Ox O2 Delivery O2 Flow Rate FiO2 12/08/20 07:00 97.7 95 18 175/74 (107) 94 97.7 12/08/20 05:00 Room Air 12/07/20 21:30 2.0 Lungs: Clear Labs Laboratory Tests Test 12/07/20 07:24 12/07/20 07:31 12/07/20 07:38 12/07/20 09:18 Influenza Type A Antigen Negative (NEGATIVE) Influenza Type B Antigen Negative (NEGATIVE) White Blood Count 9.5 x10^3/uL (4.0-11.0) Red Blood Count 4.39 x10^6/uL (3.50-5.40) Hemoglobin 13.5 g/dL (12.0-15.5) Hematocrit 40.0 % (36.0-47.0) Mean Corpuscular Volume 91 fL (79-100) Mean Corpuscular Hemoglobin 31 pg (25-35) Mean Corpuscular Hemoglobin Concent 34 g/dL (31-37) Red Cell Distribution Width 13.8 % (11.5-14.5) Platelet Count 158 x10^3/uL (140-400) Neutrophils (%) (Auto) 79 % (31-73) Lymphocytes (%) (Auto) 11 % (24-48) Monocytes (%) (Auto) 8 % (0-9) Eosinophils (%) (Auto) 1 % (0-3) Basophils (%) (Auto) 1 % (0-3) Neutrophils # (Auto) 7.5 x10^3/uL (1.8-7.7) Lymphocytes # (Auto) 1.0 x10^3/uL (1.0-4.8) Monocytes # (Auto) 0.8 x10^3/uL (0.0-1.1) Eosinophils # (Auto) 0.1 x10^3/uL (0.0-0.7) Basophils # (Auto) 0.1 x10^3/uL (0.0-0.2) Sodium Level 139 mmol/L (136-145) Potassium Level 3.3 mmol/L (3.5-5.1) Chloride Level 99 mmol/L (98-107) Carbon Dioxide Level 29 mmol/L (21-32) Anion Gap 11 (6-14) Blood Urea Nitrogen 14 mg/dL (7-20) Creatinine 0.6 mg/dL (0.6-1.0) Estimated GFR (Cockcroft-Gault) 98.8 BUN/Creatinine Ratio 23 (6-20) Glucose Level 190 mg/dL (70-99) Lactic Acid Level 2.7 mmol/L (0.4-2.0) Calcium Level 8.5 mg/dL (8.5-10.1) Magnesium Level 1.9 mg/dL (1.8-2.4) Total Bilirubin 0.9 mg/dL (0.2-1.0) Aspartate Amino Transf (AST/SGOT) 18 U/L (15-37) Alanine Aminotransferase (ALT/SGPT) 37 U/L (14-59) Alkaline Phosphatase 69 U/L (46-116) Troponin I High Sensitivity 43 ng/L (4-50) AU-Vlc-L-Type Natriuretic Peptide 1384 pg/mL (0-124) Total Protein 6.8 g/dL (6.4-8.2) Albumin 3.8 g/dL (3.4-5.0) Albumin/Globulin Ratio 1.3 (1.0-1.7) SARS-CoV-2 RNA (DAYANARA) Negative (Negative) SARS-CoV-2 Antigen (Rapid) Negative (NEGATIVE) Urine Collection Type Unknown Urine Color Becca Urine Clarity Cloudy Urine pH 6.0 (<5.0-8.0) Urine Specific [place] 1.020 (1.000-1.030) Urine Protein 30 mg/dL (NEG-TRACE) Urine Glucose (UA) Negative mg/dL (NEG) Urine Ketones (Stick) Negative mg/dL (NEG) Urine Blood Moderate (NEG) Urine Nitrite Negative (NEG) Urine Bilirubin Negative (NEG) Urine Urobilinogen Dipstick 1.0 mg/dL (0.2 mg/dL) Urine Leukocyte Esterase Moderate (NEG) Urine RBC 1-2 /HPF (0-2) Urine WBC 11-20 /HPF (0-4) Urine Squamous Epithelial Cells Occ /LPF Urine Transitional Epithelial Cells Occ /LPF Urine Renal Epithelial Cells Occ /LPF Urine Bacteria Many /HPF (0-FEW) Urine Mucus Marked /LPF Test 12/07/20 10:50 12/08/20 08:06 Lactic Acid Level 1.6 mmol/L (0.4-2.0) Glucose (Fingerstick) 307 mg/dL (70-99) Laboratory Tests Test 12/07/20 10:50 12/08/20 08:06 Lactic Acid Level 1.6 mmol/L (0.4-2.0) Glucose (Fingerstick) 307 mg/dL (70-99) Medications Active Scripts Medications Dose Route/Sig Max Daily Dose Days Date Category Magnesium Oxide 400 Mg Tablet 1 Tab PO BID 09/28/20 Rx Doxycycline Hyclate 100 Mg Capsule 1 Cap PO BID 10 09/28/20 Rx Colace (Docusate Sodium) 100 Mg Capsule 1 Cap PO BID 08/15/16 Reported Zofran Odt (Ondansetron) 4 Mg Tab.rapdis 1 Tab SL Q8HRS 08/15/16 Reported Lisinopril 20 Mg Tablet 1 Tab PO QHS 08/12/16 Reported Xalatan (Latanoprost) 2.5 Ml Drops 1 Drop EACHEYE QHS 02/12/14 Reported Metoprolol Tartrate 100 Mg Tablet 100 Mg PO BID 02/12/14 Reported Amlodipine Besylate 10 Mg Tablet 10 Mg PO DAILY 02/12/14 Reported Pravastatin Sodium 40 Mg Tablet 1 Tab PO QHS 02/12/14 Reported Impression . Full note dictated Acute exacerbation of COPD Possible mild interstitial lung disease Obtain CT chest, discharge home later today Follow-up with me in the office KEITH REYES MD Dec 08, 2020 09:18
[2020-12-08 11:00] VITALS: BP 168/54
--- NOTE | 2020-12-08 11:11 | NUR ---
SW following. Discussed with RN, pt from home with sister, room air, ada diet, COVID-19 negative. Pt wanting to discharge home today. Pulmonolgy consulted. RN advised no SW needs at this time, anticipate possible discharge home today. SW will continue to follow.
--- NOTE | 2020-12-08 11:43 | PDOC ---
[facility] [facility] PROGRESS NOTE Date of Service DOS: DATE: 12/08/20 TIME: 11:29 Chief Complaint Chief Complaint Respiratory Failure Likely acute on chronic obstructive pulmonary disease Hx tobacco abuse arthritis diabetes hyperlipidemia hypertension cardiac murmur cholecystectomy hip replacement hysterectomy tonsillectomy hernia repair shoulder repair History of Present Illness History of Present Illness 12/08: Patient seen and examined at bedside Chart reviewed Pt up in bed, comfortable at time of exam, NAD Discussed history of tobacco use, pt given kudos for 20 year cessation Discussed murmur found on auscultation, Pt claim she was born with it Case DWRN and SW Vitals/I&O Vitals/I&O: Vital Signs Date Time Temp Pulse Resp B/P (MAP) Pulse Ox O2 Delivery O2 Flow Rate FiO2 12/08/20 08:30 Room Air 12/08/20 07:00 97.7 95 18 175/74 (107) 94 97.7 12/07/20 21:30 2.0 I & O 12/07/20 12/07/20 12/08/20 15:00 23:00 07:00 Intake Total 500 ml 360 ml 480 ml Balance 500 ml 360 ml 480 ml Physical Exam General: Alert, Oriented X3, Cooperative Heart: Regular rate, Other (Systolic Murmur noted) Lungs: Clear Abdomen: Normal bowel sounds, Soft Extremities: No clubbing, No cyanosis Skin: No rashes, No breakdown Labs Labs: Laboratory Tests Test 12/08/20 08:06 Glucose (Fingerstick) 307 mg/dL (70-99) Review of Systems Review of Systems: ROS negative Assessment and Plan Assessmemt and Plan Problems Medical Problems: (1) Bronchospasm Status: Acute (2) Dyspnea Status: Acute (3) Hypoxia Status: Acute (4) Requires supplemental oxygen Status: Acute Respiratory Failure Likely acute on chronic obstructive pulmonary disease Hx tobacco abuse arthritis diabetes hyperlipidemia hypertension cardiac murmur cholecystectomy hip replacement hysterectomy tonsillectomy hernia repair shoulder repair Plan Probable discharge home today, pending Pulmonology approval, for now continue the following: Pulmonology input appreciated Titrate O2 PRN Continue scheduled breathing treatments Continue IV Abx Continue Steroids Continued tobacco cessation encouraged PT/OT ordered DVT prophylaxis Full Code Discharge disposition pending pulmonology input as noted above Comment Review of Relevant I have reviewed the following items kiara (where applicable) has been applied. Medications: Current Medications Medications (Trade) Dose Ordered Sig/Bharat Route PRN Reason Start Time Stop Time Status Last Admin Dose Admin Albuterol Sulfate (Ventolin Neb Soln) 2.5 mg 1X ONCE NEB 12/07/20 12:00 12/07/20 12:01 DC 12/07/20 12:26 Sodium Chloride 1,000 ml @ 50 mls/hr 1X ONCE IV 12/07/20 12:00 12/08/20 07:59 DC 12/07/20 12:55 Albuterol/ Ipratropium (Duoneb) 3 ml Q4HRS W/A NEB 12/07/20 14:00 12/08/20 05:27 Ceftriaxone Sodium (Rocephin) 1 gm Q24H IVP 12/07/20 15:00 12/07/20 15:55 Lactobacillus Rhamnosus (Culturelle) 1 cap BID PO 12/08/20 09:00 12/08/20 09:18 Justifications for Admission Other Justification Multiple fractures PEDRO LUIS RON III DO Dec 08, 2020 11:43
--- NOTE | 2020-12-08 11:53 | CONS ---
DATE OF CONSULTATION: 12/08/2020 ATTENDING PHYSICIAN: Eric Cruz DO REASON FOR CONSULTATION: The patient is seen in pulmonary consultation at the request of Dr. Cruz for increasing shortness of air. HISTORY OF PRESENT ILLNESS: The patient is a 69-year-old that was being treated with steroids as an outpatient for acute exacerbation of COPD. She states that she was not improving; this past Monday, she could hardly breathe. She was utilizing nebulized treatments more frequently. She presented to the Emergency Room. She was admitted, initially found saturations that were low. EMS placed on supplemental oxygen. Saturation was 91% with 2 liters of oxygen supplementation. The patient reports no COVID-19 exposure. She has been vaccinated for COVID-19. 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 She has never been diagnosed with COPD. There is a history of type 2 diabetes, hyperlipidemia, hypertension. PAST SURGICAL HISTORY: Hip replacement, hysterectomy, tonsillectomy, hernia repair. SOCIAL HISTORY: She quit tobacco 20 years ago. She had no significant occupational exposures. ALLERGIES: METFORMIN AND MORPHINE. REVIEW OF SYSTEMS: As indicated above, otherwise a 10-point system was reviewed and negative. FAMILY HISTORY: Noncontributory. PHYSICAL EXAMINATION: VITAL SIGNS: Stable. O2 saturation was greater than 92%, currently on room air 94%. HEENT: Eyes: The sclerae were nonicteric. NECK: Jugular venous distention was not elevated. No lymphadenopathy. CHEST: Full expansion. LUNGS: Poor flow with no wheezes. CARDIOVASCULAR: Regular rate and rhythm with S1, S2. No S3. ABDOMEN: Soft, nontender. EXTREMITIES: No clubbing, cyanosis. Minimal edema. NEUROLOGIC: The patient was awake, alert, following commands. A detailed neuro exam was not performed. LABORATORY DATA: Reviewed. White count was normal, hemoglobin and hematocrit were noted. Potassium was slightly low. Serology for influenza and SARS-CoV-2 was negative. Chest x-ray revealed left lower lobe atelectasis and interstitial infiltrates. IMPRESSION: 1. Abnormal x-ray revealing some interstitial infiltrates, suspect chronic interstitial lung disease, etiology unclear. 2. Acute exacerbation of chronic obstructive pulmonary disease. 3. Progressive dyspnea secondary to above. 4. Tobacco dependence, in remission. 5. Systolic murmur. The patient states that she has had a murmur most of her life, may be aortic stenosis. PLAN: 1. The patient was admitted, she failed outpatient treatment with prednisone and nebulized treatments. 2. Continue current support. 3. Obtain baseline CT chest. The above will be discussed with Dr. Eric Cruz. NORA DR: Arnulfo TID: [id number]
--- NOTE | 2020-12-08 12:01 | DS ---
DATE OF DISCHARGE: 12/08/2020 ADMISSION DIAGNOSIS: Respiratory failure. DISCHARGE DIAGNOSES: Interstitial lung disease, glaucoma, previous tobacco abuse (she quit smoking 20 years ago), hypertension, hyperlipidemia. CONSULTS: Pulmonary Medicine. PROCEDURES: None. HOSPITAL COURSE: The patient is a pleasant, middle-aged female who quit smoking 20 years ago, but presented with a cough and shortness of breath. She was admitted. We gave her steroids, breathing treatments, oxygen. I consulted Pulmonary Medicine. Dr. Austin contacted me today and explained that she probably has interstitial lung disease. He is going to get a CAT scan to confirm that and we are going to let her go home on p.o. steroids. I put in a prescription for prednisone 50 mg p.o. daily. DISPOSITION: Home. ACTIVITY: As tolerated. DIET: Low sodium. DISCHARGE MEDICATIONS: Prednisone 50 mg p.o. daily. We will continue her home amlodipine 10 a day, docusate p.r.n., doxycycline 1 b.i.d., Xalatan eyedrops, lisinopril 20 a day, magnesium oxide 400 a day, metoprolol 100 b.i.d., p.r.n. Zofran and pravastatin 40 a day. TOTAL TIME: [address]: CHERRI/marcia TID: [id number]
[2020-12-08] MEDS ORDERED: DOXYCYCLINE HYCLATE 100 MG TABLET PO SCH (12:30)
[2020-12-08] MEDS ORDERED: METOPROLOL TART IMMED RELEASE 50 MG TABLET. PO SCH (12:30)
[2020-12-08] MEDS ORDERED: INSULIN LISPRO 300 UNITS/3 ML VIAL. SQ ONE (12:30)
[2020-12-08] MEDS ORDERED: ONDANSETRON ODT 4 MG TAB.RAPDIS. PO SCH (14:00)
[2020-12-08 15:00] VITALS: BP 141/52
[2020-12-08] MEDS: cefTRIAXone IV Push 1 GM VIAL. IVP SCH (15:00)
--- NOTE | 2020-12-08 15:29 | RAD ---
EXAM: CT CHEST WITHOUT CONTRAST HISTORY: Shortness of breath COMPARISON: CT chest 10/30/2014 TECHNIQUE: Helical CT of the chest performed without contrast. Coronal and sagittal reformats were o btained. One or more of the following individualized dose reduction techniques were utilized for this examinat ion: 1. Automated exposure control 2. Adjustment of the mA and/or kV according to patient size 3. Use of iterative reconstruction technique. FINDINGS: Thyroid gland and thoracic inlet: Normal. Heart and great vessels: Heart is normal in size. There are coronary artery and aortic valve calcific ations. No pericardial effusion. The thoracic aorta is normal in caliber. Moderate calcified aortic a therosclerosis. Mediastinum and roma: There is no mediastinal or hilar lymphadenopathy. Lungs and pleura: There is a new tiny left pleural effusion with mild adjacent atelectasis. Minimal a telectasis in the posterior right lower lobe. There are a few small cysts in the apices. There is a 3 mm nodule in the right lower lobe (image 38, series 3). Several 3 to 5 mm nodular opacities in the r ight middle lobe along the minor fissure (image 34, series 3). A few additional scattered 2-3 biliary nodules in the upper lobes. Some of these were seen on 10/30/2014 but some may be new. Chest wall and axillae: No axillary lymphadenopathy. Chest wall is unremarkable. Upper abdomen: The spleen is enlarged measuring 20 cm in AP diameter, mildly increased from 2015 wher e it measured 17.5 cm in AP diameter. Bones: No acute osseous abnormality. IMPRESSION: 1. Very small left pleural effusion with mild adjacent atelectasis. 2. Small scattered pulmonary nodules including a 3 mm nodule in the right lower lobe and several 3 t o 5 mm perifissural nodules in the right middle lobe. Some of these are new from 2015. In a high risk patient, an optional twelve-month follow-up CT could be obtained to ensure stability. 3. Coronary artery calcifications and aortic valve calcifications 4. Mildly increased splenomegaly, with the spleen measuring 20 cm in AP diameter. Electronically signed by: Lilian Alexander MD (12/08/2020 3:26 PM) [id number]
--- NOTE | 2020-12-08 17:24 | NUR ---
Pt left unit at 1720 by wheelchair via private vehicle. Pt's IV removed without complication, VSS. Discharge paperwork discussed with pt, including follow-up and medications. Pt's additional questions addressed.
[2020-12-08] MEDS ORDERED: LISINOPRIL 20 MG TABLET PO SCH (21:00)
[2020-12-08] MEDS ORDERED: DOCUSATE SODIUM 100 MG CAPSULE. PO SCH (21:00)
[2020-12-08] MEDS ORDERED: LATANOPROST 0.005% OPHTH SOLUTION 2.5ML BOTTLE. OU SCH (21:00)
[2020-12-08] MEDS ORDERED: MAGNESIUM OXIDE 400 MG TABLET PO SCH (21:00)
[2020-12-08] MEDS ORDERED: ATORVASTATIN CALCIUM 10 MG TABLET. PO SCH (21:00)
== END 2020-12-08 17:27 | disposition home or self-care (01) ==
LOC: ER 06:42 → ED HOLD 11:45 → 5 NORTH 22:10
PROVIDERS: ADMIT Student in an Organized Health Care Education/Training Program; ATTEND Student in an Organized Health Care Education/Training Program
DX: J96.90 Respiratory failure, unspecified, unspecified whether with hypoxia or hypercapnia (principal); Z20.822 Contact with and (suspected) exposure to COVID-19; J84.9 Interstitial pulmonary disease, unspecified; J44.1 Chronic obstructive pulmonary disease with (acute) exacerbation; H40.9 Unspecified glaucoma; J98.01 Acute bronchospasm; E11.9 Type 2 diabetes mellitus without complications; E78.00 Pure hypercholesterolemia, unspecified; E78.5 Hyperlipidemia, unspecified; I10 Essential (primary) hypertension; J98.11 Atelectasis; M19.90 Unspecified osteoarthritis, unspecified site; R01.1 Cardiac murmur, unspecified; N39.0 Urinary tract infection, site not specified; Z90.710 Acquired absence of both cervix and uterus; Z96.649 Presence of unspecified artificial hip joint; Z79.899 Other long term (current) drug therapy; Z98.890 Other specified postprocedural states; Z90.49 Acquired absence of other specified parts of digestive tract; Z87.891 Personal history of nicotine dependence
CPT/HCPCS: 36415; 71045; 71250; 80053; 81001; 82962; 83605; 83735; 83880; 84484; 85025; 87040; 87086; 87426; 87804; 93005; 94640; 96374; 96375; 99285; G0378; J0696; J1815; J2930; J7030; J7040; J7613; U0003; U0005; G0379

== ENCOUNTER → 2020-12-17 | Outpatient (CLI) | payer MEDICARE ==
[2020-12-08 15:00] VITALS: BP 141/52
--- NOTE | 2020-12-17 16:07 | CARD ---
MR#: [id number] Date of Study: 12/17/2020 Ordering Physician: JUDY BARDALES, Referring Physician: Goran MALAGON: London Carpenter [facility] APPROVED REPORT EXAM: Two-dimensional and M-mode echocardiogram with Doppler and color Doppler. Other Information Quality : AverageHR: 61bpm Rhythm : NSR INDICATION Congestive Heart Failure Chronic diastolic heart failure. RISK FACTORS Hypertension Obesity Hyperlipidemia Smoking 2D DIMENSIONS Left Atrium(2D)5.1 (1.6-4.0cm)IVSd1.4 (0.7-1.1cm) Aortic Root(2D)2.7 (2.0-3.7cm)LVDd5.2 (3.9-5.9cm) LVOT Diameter2.0 (1.8-2.4cm)PWd1.4 (0.7-1.1cm) LVDs3.5 (2.5-4.0cm)FS (%) 33.4 % SV81.2 ml Aortic Valve AoV Peak Jose.311.3cm/sAoV VTI68.8cm AO Peak GR.38.8mmHgLVOT Peak Jose.109.4cm/s AO Mean GR.22mmHgAVA (VMAX)1.15cm2 Mitral Valve MV E Myvegwap268.0cm/sMV E Peak Gr.6mmHg MV DECEL [id number] A Velocity0.7cm/s MV E Mean Gr.2mmHgE/A Lzfhq843.3 Pulmonary Valve PV Peak Wgkoftut939.9cm/s Tricuspid Valve TR P. Iyyxemhe205gv/sTR Peak Gr.23mmHg Pulmonary Vein S1 Ugsgsdxo65.5cm/sD2 Womczxct71.6cm/s LEFT VENTRICLE The left ventricle is normal size. There is mild concentric left ventricular hypertrophy. The left ve ntricular systolic function is normal and the ejection fraction is within normal range. LV ejection f raction of 50 to 55%. There is normal LV segmental wall motion. Transmitral Doppler flow pattern is G rade III-reversible restrictive diastolic dysfunction. No left ventricle thrombus noted on this study . There is no ventricular septal defect visualized. There is no left ventricular aneurysm. There is n o mass noted in the left ventricle. RIGHT VENTRICLE The right ventricle is normal size. The right ventricular systolic function is normal. ATRIA The left atrium is moderately dilated. The right atrium is borderline dilated. The interatrial septum is intact with no evidence for an atrial septal defect or patent foramen ovale as noted on 2-D or Do ppler imaging. AORTIC VALVE The aortic valve is moderately to severely calcified. Doppler and Color Flow revealed no significant aortic regurgitation. There is mild valvular aortic stenosis. Calculated aortic valve area is 1.1 cm2 with maximum pressure gradient of 34 mmHg and mean pressure gradient of 22 mmHg. There is no aortic valvular vegetation. MITRAL VALVE The mitral valve is thickened but opens well. There is no evidence of mitral valve prolapse. There is no mitral valve stenosis. Doppler and Color-flow revealed mild mitral regurgitation. TRICUSPID VALVE The tricuspid valve is normal in structure and function. Doppler and Color Flow revealed trace tricus pid regurgitation. The PA pressure was estimated at 26 mmHg. There is no tricuspid valve prolapse or vegetation. There is no tricuspid valve stenosis. PULMONIC VALVE The pulmonic valve is not well seen. Doppler and Color Flow revealed no pulmonic valvular regurgitati on. There is no pulmonic valvular stenosis. GREAT VESSELS The aortic root is normal in size. The ascending aorta is normal in size. The IVC is normal in size a nd collapses >50% with inspiration. PERICARDIAL EFFUSION There is no pleural effusion. There is no evidence of significant pericardial effusion. Critical Notification Critical Value: No <Conclusion> The left ventricle is normal size. The left ventricular systolic function is normal and the ejection fraction is within normal range. LV ejection fraction of 50 to 55%. There is mild concentric left ventricular hypertrophy. Doppler and Color Flow revealed no significant aortic regurgitation. There is mild valvular aortic stenosis. Calculated aortic valve area is 1.1 cm2 with maximum pressure gradient of 34 mmHg and mean pressure g radient of 22 mmHg. Doppler and Color-flow revealed mild mitral regurgitation. Doppler and Color Flow revealed trace tricuspid regurgitation. The PA pressure was estimated at 26 mmHg. Signed by : Lei Beaver MD Electronically Approved : 12/17/2020 16:06:57
== END ==
LOC: ECHO 14:40
PROVIDERS: ATTEND Internal Medicine Cardiovascular Disease
DX: I08.0 Rheumatic disorders of both mitral and aortic valves (principal); I50.32 Chronic diastolic (congestive) heart failure; I10 Essential (primary) hypertension; E78.5 Hyperlipidemia, unspecified; E66.9 Obesity, unspecified; F17.210 Nicotine dependence, cigarettes, uncomplicated
CPT/HCPCS: 93306